=== PATIENT | female | born 1960 | race Caucasian/White ===

== ENCOUNTER → 2016-09-11 | Outpatient (CLI) | payer BC ==
--- NOTE | 2016-09-11 16:51 | XR ---
Abdomen HISTORY: Hematuria Frontal view of the abdomen on 2 images correlated to previous exam dated June Multiple renal calcifications are present over bilateral kidneys as on prior exam. Surgical clips are present in the right upper quadrant. Multiple calcifications in the pelvis are likely vascular. Surg ical clips are noted. IMPRESSION: Bilateral nephrolithiasis, postop changes.
== END | disposition home or self-care (01) ==
LOC: RADXRMAIN 15:37
PROVIDERS: ATTEND Urology
DX: N20.0 Calculus of kidney (principal); Z98.890 Other specified postprocedural states
CPT/HCPCS: 74000

== ENCOUNTER → 2016-09-12 | Outpatient (CLI) | payer BC ==
--- NOTE | 2016-09-12 15:42 | XR ---
EXAMINATION TYPE: XR IVP DATE OF EXAM: 09/12/2016 12:45 PM COMPARISON: NONE HISTORY: TECHNIQUE: Following intravenous administration of 100 cc Omnipaque 300, multiple spot images are obt ained. The preliminary film of the abdomen reveals innumerable renal calyceal calculi bilaterally with large r round calculi redemonstrated in the left kidney and more smaller irregular calculi redemonstrated i n the right kidney. Surgical clips in the gallbladder fossa. There are numerous densities in the pelvis corresponding to multiple phleboliths. Surgical clips uppe r pelvis extending left of midline are redemonstrated. Following intravenous administration of contra st material, sequential films of the abdomen were obtained. There is prompt and symmetrical excretion of the contrast by both kidneys which demonstrate normal size and configuration. The collecting systems and visualized portions of the ureters reveal mild bilateral pelvic fullness w ithout suspicious calyceal dilatation currently. There is no mass or obstructing calculus visualized currently. There is gradual accumulation of contrast material in the urinary bladder showing no gross abnormality. The post-voiding film shows minimal residual contrast in the collecting systems and uri nary bladder. 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 Findings are bev picious for 2 mm distal bilateral ureteral calculi near the UVJ.
== END | disposition home or self-care (01) ==
LOC: RADFLMAIN 11:20
PROVIDERS: ATTEND Urology
DX: N13.2 Hydronephrosis with renal and ureteral calculous obstruction (principal); N13.4 Hydroureter
CPT/HCPCS: 74400; Q9967

== ENCOUNTER → 2016-09-29 | Outpatient (CLI) | payer BC ==
--- NOTE | 2016-09-29 13:28 | XR ---
EXAMINATION TYPE: XR KUB DATE OF EXAM: 09/29/2016 12:57 PM COMPARISON: 09/12/2016 HISTORY: Hematuria, follow-up renal stones TECHNIQUE: One view abdominal series FINDINGS: The osseous structures are intact. The bowel gas pattern is nonspecific. Right kidney: There are at least 30 calcifications overlying the right kidney majority which appear t o be likely concentrated within the medulla. Left kidney: There again are numerous calcifications throughout the left kidney delay at least a numb er of 30. The 2 largest measure approximately 14 mm. Surgical clips in the pelvis are noted. Calcifications in the pelvis are likely vascular. IMPRESSION: 1. Stable numerous bilateral renal calcifications. The largest are noted on the left. Medullary spong e kidney in the differential diagnosis.
== END | disposition home or self-care (01) ==
LOC: RADXRMAIN 12:42
PROVIDERS: ATTEND Urology
DX: N28.89 Other specified disorders of kidney and ureter (principal)
CPT/HCPCS: 74000

== ENCOUNTER → 2016-11-03 | Outpatient (CLI) | payer BC ==
--- NOTE | 2016-11-03 15:54 | XR ---
EXAMINATION TYPE: XR KUB DATE OF EXAM: 11/03/2016 12:45 PM CLINICAL HISTORY: Kidney stones status post lithotripsy TECHNIQUE: 2 supine KUB images of the abdomen are obtained COMPARISON: Most recent abdominal x-ray September 29, 2016.. FINDINGS: There is redemonstration of multiple smaller right-sided renal calculi with approximately 3 0-40 stones present. There are approximately 20-30 calculi scattered throughout the left kidney with largest 2 calculi upper to mid pole level and single largest calculus lower pole level all stable in size and appearance. Rounded densities in bilateral pelvis favor phleboliths and are stable. Surgical clips in the mid to lower abdomen are redemonstrated. Additional cholecystectomy clips are n oted. There is overall nonobstructive bowel gas pattern. Visualized osseous structures are intact. IMPRESSION: Extensive bilateral nephrolithiasis with larger left-sided calculi redemonstrated stable in size and appearance.
== END | disposition home or self-care (01) ==
LOC: RADXRMAIN 12:33
PROVIDERS: ATTEND Urology
DX: N20.0 Calculus of kidney (principal)
CPT/HCPCS: 74000

== ENCOUNTER → 2016-11-06 | Outpatient (CLI) | payer BC ==
[2016-11-06 16:00] LABS: Basophils # (A) 0.1 k/uL (0-0.2); Basophils % (A) 1 %; CH 29.2; CHCM 32.6; Eosinophils # (A) 0.3 k/uL (0-0.7); Eosinophils % (A) 4 %; HCT 49.5 % (34.0-46.0); HDW 2.32; HGB 15.8 gm/dL (11.4-16.0); Luc # (Auto) 0.24; Luc % (Auto) 3; Lymphocytes # (A) 2.2 k/uL (1.0-4.8); Lymphocytes % (A) 31 %; MCH 28.7 pg (25.0-35.0); MCHC 31.9 g/dL (31.0-37.0); Mean Platelet Volume 6.9; Monocytes # (A) 0.6 k/uL (0-1.0); Monocytes % (A) 8 %; Neutrophils # (A) 3.6 k/uL (1.3-7.7); Neutrophils % (A) 52 %; RBC 5.51 m/uL (3.80-5.40); RDW 13.5 % (11.5-15.5); WBC 6.9 k/uL (3.8-10.6); WBC (Perox) 6.97
[2016-11-06 16:03] LABS: Appearance,Urine Cloudy (Clear); Bacteria,Urine Rare /hpf; Bilirubin,Urine Negative (Negative); Glucose,Urine (UA) Negative (Negative); Ketones,Urine Negative (Negative); Leukocyte Esterase,Urine Large (Negative); Mucus,Urine Rare /hpf; Nitrite,Urine Negative (Negative); PH, Urine 6.5 (5.0-8.0); Particle Count 4325; Protein,Urine Negative (Negative); RBC,Urine 5 /hpf (0-5); Specific Gravity,Urine 1.011 (1.001-1.035); Squamous Epithelial Cell,Urine 7 /hpf (0-4); UA Billing (MACRO vs. MICRO) MICRO; Urobilinogen,Urine <2.0 mg/dL (<2.0); WBC,Urine 41 /hpf (0-5)
[2016-11-06 16:18] LABS: Anion Gap 13 mmol/L; Blood Urea Nitrogen 17 mg/dL (7-17); Calcium 10.1 mg/dL (8.4-10.2); Carbon Dioxide 25 mmol/L (22-30); Chloride 105 mmol/L (98-107); Glucose 101 mg/dL (74-99); Non-African American GFR(MDRD) >60 (>60 ml/min/1.73 sqM); Potassium 4.6 mmol/L (3.5-5.1); Sodium 143 mmol/L (137-145)
== END ==
LOC: LABPAT 15:36
PROVIDERS: ATTEND Urology
DX: Z01.812 Encounter for preprocedural laboratory examination (principal); E03.9 Hypothyroidism, unspecified; R35.0 Frequency of micturition; N20.0 Calculus of kidney
CPT/HCPCS: 36415; 80048; 81001; 85025; 86850; 86900; 86901

== ENCOUNTER 2016-11-11 09:56 | Observation (INO) | payer BC ==
[2016-11-06 09:54] VITALS: BMI 30.1
[~2016-11-11 09:56] MED LIST: AMPICILLIN 1,000 MG in SODIUM CHLORIDE 0.9% 50 ML IVPB ONE; DEXAMETHASONE SOD PHOSPHATE 10 MG/ML 1 ML VIAL IV ONE; GENTAMICIN 120 MG in SODIUM CHLORIDE 0.9% 100 ML IVPB ONE; LACTATED RINGERS 1,000 ML IV SCH; MIDAZOLAM 2 MG/2 ML VIAL IV PRN; ONDANSETRON 4 MG/2 ML VIAL IVP ONE
--- NOTE | 2016-11-11 10:16 | XR ---
EXAMINATION TYPE: XR KUB DATE OF EXAM ORDERED: 11/11/2016 10:08 AM HISTORY: Kidney stone,DOS 11-11-16,[facility].. COMPARISON: Previous study dated 11/03/2016. FINDINGS: There has been right upper quadrant as well as pelvic surgery. There are numerous phleboliths within the pelvis. There are innumerable small calcifications throughout the right kidney. One of the largest measures 7 .9 mm. There are multiple calcifications scattered throughout the left kidney. The largest is in the upper pole and measures 11.9 mm. The overall appearance has not changed appreciably from the previous study. IMPRESSION: EXTENSIVE, BILATERAL NEPHROLITHIASIS.
[2016-11-11] MEDS ORDERED: LIDOCAINE 1% 20 ML VIAL (10MG/ML) FOR IV START INTRADERMA ONE (10:23)
[2016-11-11] MEDS ORDERED: SUCCINYLCHOLINE CHLORIDE 100 MG/5 ML SYR IV ONE (10:37)
[2016-11-11] MEDS ORDERED: PROPOFOL 10 MG/ML 20 ML VIAL IV ONE (10:37)
[2016-11-11] MEDS ORDERED: ROCURONIUM BROMIDE 10 MG/ML 10 ML VIAL IV ONE (10:37)
[2016-11-11] MEDS ORDERED: MIDAZOLAM 2 MG/2 ML VIAL ONE (10:37)
[2016-11-11] MEDS ORDERED: LIDOCAINE 1% INJ 10MG/ML (20 ML MDV) ONE (10:37)
[2016-11-11] MEDS ORDERED: NEOSTIGMINE 1 MG/ML 10 ML VIAL ONE (10:37)
[2016-11-11] MEDS ORDERED: ePHEDrine 50 MG/ML 1 ML AMP ONE (10:37)
[2016-11-11] MEDS ORDERED: fentaNYL (PF) 50 MCG/ML 2 ML AMP ONE (10:37)
[2016-11-11] MEDS ORDERED: PHENYLEPHRINE-0.9% NACL SYG 1 MG/10 ML SYRINGE ONE (10:37)
[2016-11-11] MEDS ORDERED: GLYCOPYRROLATE 0.2 MG/ML 2 ML VIAL ONE (10:37)
[2016-11-11] MEDS ORDERED: IOHEXOL 350 MG/ML 100 ML BOTTLE MISCELLANE ONE (11:40)
[2016-11-11] MEDS ORDERED: SODIUM CHLORIDE 0.9% 1,000 ML BAG IRRIGATION ONE (11:40)
[2016-11-11] MEDS ORDERED: MAG HYDROX/AL HYDROX/SIMETH 30 ML CUP PO PRN (12:50)
[2016-11-11] MEDS ORDERED: NALOXONE 0.4 MG/ML 1 ML VIAL IV PRN (12:52)
[2016-11-11] MEDS ORDERED: HYDROmorphone PCA 5 MG/25 ML SYRINGE IV PRN ×2 (12:52→15:50)
[2016-11-11] MEDS ORDERED: ONDANSETRON 4 MG/2 ML VIAL IVP PRN (12:52)
[2016-11-11] MEDS ORDERED: diphenhydrAMINE 50 MG/ML 1 ML VIAL IVP PRN (12:52)
--- NOTE | 2016-11-11 12:58 | P.OP ---
Date of Procedure: 11/11/16 Preoperative Diagnosis: Renal calculi large Postoperative Diagnosis: Same, tubular stones Procedure(s) Performed: Cystoscopy, placement of occluding balloon catheter left, 5-Algerian, percutaneous nephrostomy (Dr. Hollins) percutaneous nephrostolithotomy with laser , placement of 8-Algerian J nephrostomy Anesthesia: ELISA Surgeon: Ramin Muñoz Estimated Blood Loss (ml): 50 Pathology: other (Stone) Condition: stable Disposition: PACU Indications for Procedure: The patient is a 55-year-old female with chronic active urolithiasis multiple left renal stones, large, recurrent urine or tract infection with sepsis with obstructing stones she comes for stone removal Description of Procedure: The patient is brought to the operating suite and given a successful general endotracheal anesthesia on the transport gurney. She's placed in a frog position with a sterile prep and drape. Cystoscopy of the Foroblique lens and 22-Algerian sheath is performed to intubate the left ureteral orifice and place a 5-Algerian occluding balloon catheter in the proximal ureter. It is secured to a Langston catheter. The patient is placed in a prone position with care to airways and extremities. Dr. Hollins of radiology performed percutaneous access to the left lower pole calyx. I then dilate the tract to 30-Algerian and introduced a working sheath into the collecting system. I'm able to access the anterior lower pole calyx and remove the large stone seen there. It is noted that she has a lot of stones behind the papilla. With the grasping forceps I'm able to open the urothelium of the papilla and remove some of these tubular stones. I then pass the flexible nephroscope into the collecting system primarily the upper pole and identify the 2 larger stones. With the 365 laser probe I fracture the stones into tiny pieces and basket these pieces with a 1.9-Algerian basket. I then looked throughout the collecting system basketing or grasping any remaining fragments or stones. At the end of the procedure the only thing that I can see on fluoroscopy or tubular stones which are tiny. I do not see any remaining stones endoscopically and the collecting system. An 8-Algerian J nephrostomy tube was placed over the working wire and coils in the renal pelvis confirmed fluoroscopically. It is secured the skin with 2-0 silk. The wound is dressed the patient's awakened the ureteral catheters removed she's returned recovery room good condition. Blood loss is 50 mL.
[2016-11-11] MEDS: HYDROmorphone 1 MG/ML 1 ML SYRINGE IVP PRN ×2 (13:16→13:21)
--- NOTE | 2016-11-11 13:54 | FL ---
EXAMINATION TYPE: FL Perc Nephrostomy New Access DATE OF EXAM: 11/11/2016 12:57 PM COMPARISON: NONE HISTORY: Hydronephrosis, nephrolithiasis. PROCEDURE: Maximal barrier technique was utilized. The skin overlying the left kidney was localized using fluor oscopy and the overlying skin prepped and draped. Lidocaine used for local anesthesia. Skin fabby wa s made with a scalpel. Access was gained under fluoroscopy, following placement of a ureteral occlus ion balloon by the referring clinician and instillation of air in the renal collecting system with a 21-gauge needle to the kidney. A suitable posterior calyx was chosen. A 0.018 inch wire was advanc ed. The access site was dilated and subsequently a sheath was advanced into the renal pelvis followi ng dilation with balloon along the tract. The patient underwent nephrolithotomy by the referring clin ician. The patient remained in stable condition without complication. The patient was discharged t o observation. IMPRESSION: STATUS POST NEPHROSTOMY PLACEMENT FOR NEPHROLITHOTOMY WITH FLUOROSCOPIC GUIDANCE. THIS PROCEDURE PER FORMED BY THE UNDERSIGNED.
[2016-11-11] MEDS ORDERED: LEVOFLOXACIN 500 MG TAB PO SCH (14:00)
[2016-11-11] MEDS: DEXTROSE 5%-0.45% NACL 1,000 ML IV SCH (14:15)
[2016-11-11] MEDS: ACETAMINOPHEN TAB 325 MG TAB PO PRN (14:52)
[2016-11-11] MEDS: KETOROLAC 30 MG/ML 1 ML VIAL IVP SCH (18:18)
[2016-11-11] MEDS ORDERED: ZOLPIDEM 5 MG TAB PO SCH (21:15)
[2016-11-12] MEDS: KETOROLAC 30 MG/ML 1 ML VIAL IVP SCH ×2 (00:21→06:25)
[2016-11-12] MEDS: DEXTROSE 5%-0.45% NACL 1,000 ML IV SCH (00:21)
[2016-11-12] MEDS: ACETAMINOPHEN TAB 325 MG TAB PO PRN (00:22)
[2016-11-12] MEDS ORDERED: LEVOTHYROXINE 88 MCG TAB PO SCH (06:30)
[2016-11-12 08:43] VITALS: PULSE 57; RESP 16; TEMP 98
[2016-11-12] MEDS ORDERED: HYDROcodone/APAP 5-325MG 1 EACH TAB PO PRN (09:12)
--- NOTE | 2016-11-12 09:12 | P.DS ---
Providers Date of admission: 11/12/16 05:12 Attending physician: Ramin Muñoz Primary care physician: Stated None Hospital Course: The patient is a 55-year-old female with active urolithiasis. She had several large stones in her left kidney. She came for percutaneous nephrostolithotomy . She had an uneventful postoperative course. This morning both her voided and nephrostomy tube urinary clear. Her abdomen is soft. She is tolerating diet. Her pain is under control. She'll be discharged home with her nephrostomy tube. She will return to the office on Thursday for nephrostomy tube removal. We'll continue to work on kidney stone formation and recurrent bladder infections. Her condition upon discharge is good or medication as [place] plus her home medications Patient Condition at Discharge: Good Plan - Discharge Summary New Discharge Prescriptions: HYDROcodone/APAP 5-325MG [[place] 5-325] 1 tab PO Q4HR PRN #20 tab PRN Reason: Pain Discharge Medication List Levothyroxine Sodium [Synthroid] 88 mcg PO QAM 03/27/16 [History] Eszopiclone [Lunesta] 3 mg PO HS 04/15/16 [History] Acetaminophen [Tylenol 8 Hour] 650 mg PO DAILY PRN 11/06/16 [History] Ibuprofen [Motrin] 200 mg PO Q6HR PRN 11/06/16 [History] Levofloxacin [Levaquin] 500 mg PO DAILY 11/06/16 [History] HYDROcodone/APAP 5-325MG [[place] 5-325] 1 tab PO Q4HR PRN #20 tab 11/12/16 [Rx] Follow up Appointment(s)/Referral(s): Ramin Muñoz MD [STAFF PHYSICIAN] - 11/14/16 Activity/Diet/Wound Care/Special Instructions: home with nephrostomy tube
[2016-11-12 10:24] VITALS: BP 97/59
== END 2016-11-12 10:28 | disposition home or self-care (01) ==
LOC: OR 09:56 → 6PED 12:39 → OR 11-12 05:11 → 6PED 11-12 05:12
PROVIDERS: ADMIT Urology; ATTEND Urology
DX: N20.0 Calculus of kidney (principal); E03.9 Hypothyroidism, unspecified; G47.00 Insomnia, unspecified; Z79.899 Other long term (current) drug therapy
CPT/HCPCS: 50432; 74000; 82365; 86850; 86900; 86901; 96374

== ENCOUNTER 2016-11-12 20:58 | Inpatient (IN) | payer BC ==
[2016-11-12] MEDS ORDERED: cefTRIAXone 2,000 MG in SODIUM CHLORIDE 0.9% 100 ML IVPB STA (22:53)
--- NOTE | 2016-11-12 22:53 | ED ---
General Adult HPI - General Chief complaint: Abdominal Pain Stated complaint: Abd pain Time Seen by Provider: 11/12/16 22:09 Source: patient, family, RN notes reviewed, old records reviewed Mode of arrival: ambulatory Limitations: no limitations - History of Present Illness Initial comments: Chief complaint and history of present illness is a 55-year-old female who is here because of a fever and lower abdominal pain. Yesterday the patient had a left percutaneous nephrolithotomy to rinse out the kidney. She has a history of multiple kidney stones or urinary tract infections. Review of thepatient's urine appeared clear this morning without symptoms or problems. After being discharged on Levaquin and [place] the patient developed a fever and lower abdominal pain. She was told to come back to the emergency room. Complains of nausea but no vomiting. - Related Data Home Medications Medication Instructions Recorded Confirmed Levothyroxine Sodium [Synthroid] 88 mcg PO QAM 03/27/16 11/12/16 Eszopiclone [Lunesta] 3 mg PO HS 04/15/16 11/12/16 Acetaminophen [Tylenol 8 Hour] 650 mg PO DAILY PRN 11/06/16 11/12/16 Ibuprofen [Motrin] 200 mg PO Q6HR PRN 11/06/16 11/12/16 Levofloxacin [Levaquin] 500 mg PO DAILY 11/06/16 11/12/16 Previous Rx's Medication Instructions Recorded HYDROcodone/APAP 5-325MG [[place] 1 tab PO Q4HR PRN #20 tab 11/12/16 5-325] Allergies Allergy/AdvReac Type Severity Reaction Status Date / Time ciprofloxacin [From Cipro] AdvReac Nausea & Verified 11/12/16 22:12 Vomiting ciprofloxacin HCl AdvReac Nausea & Verified 11/12/16 22:12 [From Cipro] Vomiting Review of Systems ROS Statement: Those systems with pertinent positive or pertinent negative responses have been documented in the HPI. Review of systems. No visual acuity or headache no chest pain or shortness of breath. She has discomfort to her left flank where she had the nephrolithotomy performed yesterday. Also lower abdominal pain. She developed a fever with nausea but no vomiting this afternoon. All systems are reviewed. Past medical problems significant for asthma, hyperlipidemia multiple kidney stones. Surgeries include cholecystectomy, thyroidectomy for benign entity. Is also partial hysterectomy. Patient's family history significant for kidney stones. She has ALLERGIES to Cipro but she can take Levaquin. Nonsmoker nondrinker. ROS Other: All systems not noted in ROS Statement are negative. Past Medical History Past Medical History: Asthma, Hyperlipidemia Additional Past Medical History / Comment(s): kidney stones History of Any Multi-Drug Resistant Organisms: ESBL Date of last positivie culture/infection: 07/06/16 MDRO Source:: urine kl. pneumo Past Surgical History: Cholecystectomy Additional Past Surgical History / Comment(s): thyroidectomy Past Psychological History: No Psychological Hx Reported Smoking Status: Never smoker Past Alcohol Use History: None Reported Past Drug Use History: None Reported - Past Family History Mother Family Medical History: No Reported History Father Family Medical History: No Reported History General Exam - General Exam Comments Initial Comments: General: The patient is awake and alert, with pain and fever post left percutaneous nephrolithotomy. The patient's draining tube is reddish in color. Vital signs show temperature 102.3 pulse 120 respiratory rate 20 pulse ox 94% room air blood pressure 113/67. Eye: Pupils are equal, round and reactive to light, extra-ocular movements are intact ; there is normal conjunctiva bilaterally. No signs of icterus. Ears, nose, mouth and throat: There are moist mucous membranes . Neck: The neck is supple, there is no tenderness . Cardiovascular: Tachycardic heart rate, 120 with fever. No murmur, rub or gallop is appreciated. Respiratory: Lungs are clear to auscultation, respirations are non-labored, breath sounds are equal. No wheezes, stridor, rales, or rhonchi. Gastrointestinal: Lower abdominal pain. Nausea no vomiting. Back: Patient has no indwelling percutaneous left nephrolithotomy catheter placed yesterday. This was used to rinse or irrigate the kidney. Musculoskeletal: Normal ROM, no tenderness, There is no pedal edema. Limitations: no limitations Course Vital Signs 11/12/16 11/12/16 20:59 23:01 Temperature 102.3 F H 102.3 F H Pulse Rate 120 H 99 Respiratory 20 20 Rate Blood Pressure 113/67 141/65 O2 Sat by Pulse 94 L 94 L Oximetry Medical Decision Making - Medical Decision Making Medical decision making; patient's white count 6.3 hemoglobin 13 hematocrit 40.7 potassium is 4.4, BUN 12 creatinine 1.0 the GFR 57. Glucose 100. Urine shows large leuk esterase positive, 15 rbc's 102 WBCs. Renal ultrasound was done and reviewed by radiologist his final impression is multiple bilateral renal calculi. No evidence of hydronephrosis. Also small right renal cyst. As read by Dr. Knight Chest x-ray is done AP and lateral view. Awaiting radiologist's final impression. Case had been discussed with on-call urologist Dr. rico. He recommended Rocephin being started this evening. - Lab Data Result diagrams: 11/12/16 23:00 11/12/16 23:00 Lab Results 11/12/16 11/12/16 11/12/16 Range/Units 23:00 23:00 23:00 WBC 6.3 (3.8-10.6) k/uL RBC 4.67 (3.80-5.40) m/uL Hgb 13.3 (11.4-16.0) gm/dL Hct 40.7 (34.0-46.0) % MCV 87.1 (80.0-100.0) fL MCH 28.5 (25.0-35.0) pg MCHC 32.8 (31.0-37.0) g/dL RDW 13.5 (11.5-15.5) % Plt Count 198 (150-450) k/uL Neutrophils % 83 % Lymphocytes % 9 % Monocytes % 5 % Eosinophils % 2 % Basophils % 1 % Neutrophils # 5.2 (1.3-7.7) k/uL Lymphocytes # 0.6 L (1.0-4.8) k/uL Monocytes # 0.3 (0-1.0) k/uL Eosinophils # 0.1 (0-0.7) k/uL Basophils # 0.0 (0-0.2) k/uL Sodium 133 L (137-145) mmol/L Potassium 4.4 (3.5-5.1) mmol/L Chloride 104 (98-107) mmol/L Carbon Dioxide 23 (22-30) mmol/L Anion Gap 6 mmol/L BUN 12 (7-17) mg/dL Creatinine 1.00 (0.52-1.04) mg/dL Est GFR (MDRD) Af Amer >60 (>60 ml/min/1.73 sqM) Est GFR (MDRD) Non-Af 57 (>60 ml/min/1.73 sqM) Glucose 100 H (74-99) mg/dL Plasma Lactic Acid Shaw 0.8 (0.7-2.0) mmol/L Calcium 8.6 (8.4-10.2) mg/dL Total Bilirubin 0.5 (0.2-1.3) mg/dL AST 39 H (14-36) U/L ALT 41 (9-52) U/L Alkaline Phosphatase 86 (38-126) U/L Total Protein 5.8 L (6.3-8.2) g/dL Albumin 3.2 L (3.5-5.0) g/dL Urine Color Urine Appearance (Clear) Urine pH (5.0-8.0) Ur Specific [place] (1.001-1.035) Urine Protein (Negative) Urine Glucose (UA) (Negative) Urine Ketones (Negative) Urine Blood (Negative) Urine Nitrite (Negative) Urine Bilirubin (Negative) Urine Urobilinogen (<2.0) mg/dL Ur Leukocyte Esterase (Negative) Urine RBC (0-5) /hpf Urine WBC (0-5) /hpf Ur Squamous Epith Cells (0-4) /hpf Urine Bacteria (None) /hpf Urine Mucus (None) /hpf 11/12/16 Range/Units 23:00 WBC (3.8-10.6) k/uL RBC (3.80-5.40) m/uL Hgb (11.4-16.0) gm/dL Hct (34.0-46.0) % MCV (80.0-100.0) fL MCH (25.0-35.0) pg MCHC (31.0-37.0) g/dL RDW (11.5-15.5) % Plt Count (150-450) k/uL Neutrophils % % Lymphocytes % % Monocytes % % Eosinophils % % Basophils % % Neutrophils # (1.3-7.7) k/uL Lymphocytes # (1.0-4.8) k/uL Monocytes # (0-1.0) k/uL Eosinophils # (0-0.7) k/uL Basophils # (0-0.2) k/uL Sodium (137-145) mmol/L Potassium (3.5-5.1) mmol/L Chloride (98-107) mmol/L Carbon Dioxide (22-30) mmol/L Anion Gap mmol/L BUN (7-17) mg/dL Creatinine (0.52-1.04) mg/dL Est GFR (MDRD) Af Amer (>60 ml/min/1.73 sqM) Est GFR (MDRD) Non-Af (>60 ml/min/1.73 sqM) Glucose (74-99) mg/dL Plasma Lactic Acid Shaw (0.7-2.0) mmol/L Calcium (8.4-10.2) mg/dL Total Bilirubin (0.2-1.3) mg/dL AST (14-36) U/L ALT (9-52) U/L Alkaline Phosphatase (38-126) U/L Total Protein (6.3-8.2) g/dL Albumin (3.5-5.0) g/dL Urine Color Yellow Urine Appearance Cloudy H (Clear) Urine pH 5.5 (5.0-8.0) Ur Specific [place] 1.012 (1.001-1.035) Urine Protein Negative (Negative) Urine Glucose (UA) Negative (Negative) Urine Ketones Negative (Negative) Urine Blood Moderate H (Negative) Urine Nitrite Negative (Negative) Urine Bilirubin Negative (Negative) Urine Urobilinogen <2.0 (<2.0) mg/dL Ur Leukocyte Esterase Large H (Negative) Urine RBC 50 H (0-5) /hpf Urine WBC 102 H (0-5) /hpf Ur Squamous Epith Cells 4 (0-4) /hpf Urine Bacteria Rare H (None) /hpf Urine Mucus Rare H (None) /hpf Disposition Clinical Impression: Urinary tract infection Disposition: ADMITTED IP TO THIS HOSP Condition: Fair Time of Disposition: 01:05
[2016-11-12] MEDS ORDERED: HYDROmorphone 1 MG/ML 1 ML SYRINGE IVP STA (22:54)
[2016-11-12] MEDS ORDERED: SODIUM CHLORIDE 0.9% 1,000 ML IV ONE (22:55)
[2016-11-12] MEDS ORDERED: METOCLOPRAMIDE 5 MG/ML 2 ML VIAL IVP STA (22:55)
[2016-11-12] MEDS ORDERED: ACETAMINOPHEN TAB 500 MG TAB PO STA (23:03)
[2016-11-12 23:12] LABS: Basophils % (A) 1 %; CH 28.9; CHCM 33.4; Eosinophils # (A) 0.1 k/uL (0-0.7); Eosinophils % (A) 2 %; HCT 40.7 % (34.0-46.0); HDW 2.31; HGB 13.3 gm/dL (11.4-16.0); Luc # (Auto) 0.08; Luc % (Auto) 1; Lymphocytes # (A) 0.6 k/uL (1.0-4.8); Lymphocytes % (A) 9 %; MCH 28.5 pg (25.0-35.0); MCHC 32.8 g/dL (31.0-37.0); MCV 87.1 fL (80.0-100.0); Mean Platelet Volume 6.9; Monocytes # (A) 0.3 k/uL (0-1.0); Monocytes % (A) 5 %; Neutrophils # (A) 5.2 k/uL (1.3-7.7); Neutrophils % (A) 83 %; RBC 4.67 m/uL (3.80-5.40); RDW 13.5 % (11.5-15.5); WBC 6.3 k/uL (3.8-10.6); WBC (Perox) 6.78
[2016-11-12 23:20] LABS: Appearance,Urine Cloudy (Clear); Bacteria,Urine Rare /hpf; Bilirubin,Urine Negative (Negative); Glucose,Urine (UA) Negative (Negative); Ketones,Urine Negative (Negative); Leukocyte Esterase,Urine Large (Negative); Mucus,Urine Rare /hpf; Nitrite,Urine Negative (Negative); PH, Urine 5.5 (5.0-8.0); Particle Count 2885; Protein,Urine Negative (Negative); RBC,Urine 50 /hpf (0-5); Specific Gravity,Urine 1.012 (1.001-1.035); Squamous Epithelial Cell,Urine 4 /hpf (0-4); UA Billing (MACRO vs. MICRO) MICRO; Urobilinogen,Urine <2.0 mg/dL (<2.0); WBC,Urine 102 /hpf (0-5)
[2016-11-12 23:23] LABS: ALT 41 U/L (9-52); AST 39 U/L (14-36); Alkaline Phosphatase 86 U/L (38-126); Anion Gap 6 mmol/L; Blood Urea Nitrogen 12 mg/dL (7-17); Calcium 8.6 mg/dL (8.4-10.2); Carbon Dioxide 23 mmol/L (22-30); Chloride 104 mmol/L (98-107); Glucose 100 mg/dL (74-99); Non-African American GFR(MDRD) 57 (>60 ml/min/1.73 sqM); Potassium 4.4 mmol/L (3.5-5.1); Sodium 133 mmol/L (137-145); Total Bilirubin 0.5 mg/dL (0.2-1.3); Total Protein 5.8 g/dL (6.3-8.2)
--- NOTE | 2016-11-13 00:37 | US ---
EXAM: US Retroperitoneal Limited, Renal. CLINICAL HISTORY: Reason: Recent left percutaneous left nephro lithotomy TECHNIQUE: Real-time ultrasound of the retroperitoneum (limited) with image documentation. COMPARISON: Renal ultrasound 07/06/16 FINDINGS: Kidneys:: Kidneys are of normal size and echotexture bilaterally. Multiple shadowing echodensities in both kidneys suggesting bilateral renal calculi. Largest calculus mid zone right kidney measures 1.4 cm largest calculus upper pole left kidney measures 2.1 cm. Small approximate 1.17 m cyst along the upper pole to mid zone of right kidney. No evidence of hydronephrosis. Interval resolution of right hydronephrosis since 03/27/2016. No perinephric fluid collections identified. Bladder: Urinary bladder is unremarkable although incompletely distended limiting bladder evaluation. IMPRESSION: Multiple bilateral renal calculi. No evidence of hydronephrosis. Small right renal cyst..
--- NOTE | 2016-11-13 01:03 | XR ---
EXAM: XR Chest, 2 Views. CLINICAL HISTORY: Reason: Recent left percutaneous nephrolithotomy TECHNIQUE: Frontal and lateral views of the chest. COMPARISON: No relevant prior studies available. FINDINGS: Lungs: Increased opacity left lung base suggesting left lower lobe infiltrate or partial atelectasis. Lungs are otherwise clear. Pleural space: No evidence of pleural effusion. No pneumothorax. Heart: Heart size and mediastinal structures are within normal limits. Mediastinum: Unremarkable. Bones/joints: Unremarkable. IMPRESSION: Left lower lobe infiltrate or partial atelectasis. Possibility of pneumonia must be considered and clinical correlation is recommended.
[2016-11-13] MEDS ORDERED: METOCLOPRAMIDE 5 MG/ML 2 ML VIAL IVP PRN (01:06)
[2016-11-13] MEDS ORDERED: NALOXONE 0.4 MG/ML 1 ML VIAL IV PRN (01:06)
[2016-11-13] MEDS ORDERED: ACETAMINOPHEN TAB 325 MG TAB PO PRN (01:09)
[2016-11-13 01:40] VITALS: BMI 30.9
[2016-11-13] MEDS: HYDROmorphone 1 MG/ML 1 ML SYRINGE IV PRN ×3 (02:47→11:48)
[2016-11-13] MEDS: SODIUM CHLORIDE 0.9% 1,000 ML IV SCH ×2 (02:49→21:54)
[2016-11-13] MEDS: LEVOTHYROXINE 88 MCG TAB PO SCH (08:14)
[2016-11-13] MEDS: IBUPROFEN 200 MG TAB PO PRN ×2 (08:50→20:02)
[2016-11-13] MEDS: PANTOPRAZOLE 40 MG/10 ML VIAL IV SCH (08:51)
--- NOTE | 2016-11-13 11:27 | P.GSHP ---
History of Present Illness H&P Date: 11/13/16 The patient is a 65-year-old female who underwent a left percutaneous nephrostolithotomy on 11/11/2016. She was discharged home yesterday. He called me last night stating she felt cold. She took her temperature and had a 102.5 fever. She came into the emergency room. Her urine was inflamed and she either had atelectasis or infiltrate in the left lung. She is admitted for IV hydration, IV antibiotics. She had been on oral Levaquin preoperatively and postoperatively which is culture specific. Her nephrostomy tube has been draining. He is feeling a little better this morning. Her white blood cell count was normal. Her temperature this morning is 100. - Review of Systems Comment: Noncontributory Past Medical History Past Medical History: Asthma, Hyperlipidemia Additional Past Medical History / Comment(s): kidney stones History of Any Multi-Drug Resistant Organisms: ESBL Date of last positivie culture/infection: 07/06/16 MDRO Source:: urine kl. pneumo Past Surgical History: Cholecystectomy Additional Past Surgical History / Comment(s): thyroidectomy Past Psychological History: No Psychological Hx Reported Smoking Status: Never smoker Past Alcohol Use History: None Reported Past Drug Use History: None Reported - Past Family History Mother Family Medical History: No Reported History Father Family Medical History: No Reported History Medications and Allergies Home Medications Medication Instructions Recorded Confirmed Type Levothyroxine Sodium [Synthroid] 88 mcg PO QAM 03/27/16 11/12/16 History Eszopiclone [Lunesta] 3 mg PO HS 04/15/16 11/12/16 History Acetaminophen [Tylenol 8 Hour] 650 mg PO DAILY PRN 11/06/16 11/12/16 History Ibuprofen [Motrin] 200 mg PO Q6HR PRN 11/06/16 11/12/16 History Levofloxacin [Levaquin] 500 mg PO DAILY 11/06/16 11/12/16 History Allergies Allergy/AdvReac Type Severity Reaction Status Date / Time ciprofloxacin [From Cipro] AdvReac Nausea & Verified 11/12/16 22:12 Vomiting ciprofloxacin HCl AdvReac Nausea & Verified 11/12/16 22:12 [From Cipro] Vomiting Surgical - Exam Vital Signs Temp Pulse Resp BP Pulse Ox 102.3 F H 120 H 20 113/67 94 L 11/12/16 20:59 11/12/16 20:59 11/12/16 20:59 11/12/16 20:59 11/12/16 20:59 - General well developed, well nourished, no distress - Eyes PERRL - ENT no hearing loss - Neck trachea midline - Respiratory normal expansion, normal respiratory effort - Cardiovascular Rhythm: regular - Abdomen She has mild tenderness in the left upper abdomen consistent with her recent surgery. Abdomen: tender - Neurologic normal coordination, normal sensation - Psychiatric oriented to time, oriented to person, oriented to place, speech is normal, memory intact Results - Labs 11/12/16 23:00 11/12/16 23:00 Assessment and Plan Plan: Impression: Postoperative fever doubly due to atelectasis or left lower lobe infiltrate. Possible urinary infection Recommendations. She was started on ceftriaxone. She'll have an incentive spirometry. He'll continue with IV fluids and we'll reassess in 24 hours.
[2016-11-14] MEDS: SODIUM CHLORIDE 0.9% 1,000 ML IV SCH ×2 (03:33→07:50)
[2016-11-14] MEDS: LEVOTHYROXINE 88 MCG TAB PO SCH (07:50)
[2016-11-14 08:40] VITALS: BP 131/77; PULSE 84; RESP 16; TEMP 98.5
--- NOTE | 2016-11-14 08:46 | XR ---
EXAMINATION TYPE: XR chest 2V DATE OF EXAM: 11/14/2016 7:16 AM COMPARISON: Prior chest x-ray 12 November 2016 HISTORY: Rule out pneumonia, abnormal chest x-ray TECHNIQUE: Frontal and lateral views of the chest are obtained. FINDINGS: Patchy basilar density is present bilaterally. No evident pneumothorax. Cardiac mediastina l silhouette, pulmonary vascularity and mireya are within normal limits. IMPRESSION: Basilar atelectasis, the MB small effusion, correlate to exclude airspace disease and fo llow-up suggested.
[2016-11-14] MEDS: PANTOPRAZOLE 40 MG/10 ML VIAL IV SCH (09:36)
--- NOTE | 2016-11-14 11:51 | P.DS ---
Providers Date of admission: 11/13/16 01:09 Attending physician: Thiago Hernandez Primary care physician: Beth Godinez [place] Course: The patient is a 55-year-old female who underwent a percutaneous nephrostolithotomy 11/11/2016. She came to the hospital following morning with fever and chills. She had atelectasis or pneumonia. She is given a gram of Rocephin and placed on incentive from a tree and IV fluids. Her fever defervesced quickly. She stayed in the hospital till today. I removed her nephrostomy tube. Her urine culture is pending. She feels well she'll be discharged home later today and antibiotic appropriate for the urine culture. A chest x-ray was a sickly unchanged over she is breathing better feeling better pain is less and her temperature is gone. It is my belief that her postoperative fever is due to atelectasis. Her perioperative urine infection continues to be treated. She'll follow-up in the office in one week. Patient Condition at Discharge: Fair Plan - Discharge Summary New Discharge Prescriptions: Amoxicillin/Potassium Clav [Augmentin 875-125 Tablet] 1 tab PO Q12HR #14 tab Metoclopramide HCl [Reglan] 10 mg PO Q6HR PRN #10 tablet PRN Reason: Nausea Discharge Medication List Levothyroxine Sodium [Synthroid] 88 mcg PO QAM 03/27/16 [History] Eszopiclone [Lunesta] 3 mg PO HS 04/15/16 [History] Acetaminophen [Tylenol 8 Hour] 650 mg PO DAILY PRN 11/06/16 [History] Ibuprofen [Motrin] 200 mg PO Q6HR PRN 11/06/16 [History] Levofloxacin [Levaquin] 500 mg PO DAILY 11/06/16 [History] HYDROcodone/APAP 5-325MG [[place] 5-325] 1 tab PO Q4HR PRN #20 tab 11/12/16 [Rx] Amoxicillin/Potassium Clav [Augmentin 875-125 Tablet] 1 tab PO Q12HR #14 tab [Rx] Metoclopramide HCl [Reglan] 10 mg PO Q6HR PRN #10 tablet 11/14/16 [Rx] Follow up Appointment(s)/Referral(s): Beth Godinez MD [Primary Care Provider] - 1-2 days Ramin Muñoz MD [STAFF PHYSICIAN] - 1 Week
[2016-11-15] MEDS ORDERED: LEVOTHYROXINE 88 MCG TAB PO SCH (06:30)
[2016-11-15] MEDS ORDERED: PANTOPRAZOLE 40 MG TABLET PO SCH (09:00)
== END 2016-11-14 17:52 | disposition home or self-care (01) | DRG 206 ==
LOC: EC 20:58 → 3SUR 11-13 01:09
PROVIDERS: ADMIT Urology; ATTEND Urology
PROC: 0TP5X0Z Removal of Drainage Device from Kidney, External Approach (ICD-10-PCS; principal; 2016-11-14)
DX: J98.11 Atelectasis (principal); N28.1 Cyst of kidney, acquired; N39.0 Urinary tract infection, site not specified; J45.909 Unspecified asthma, uncomplicated; R50.82 Postprocedural fever; N20.0 Calculus of kidney; E78.5 Hyperlipidemia, unspecified; R11.0 Nausea; R00.0 Tachycardia, unspecified; E89.0 Postprocedural hypothyroidism; Z98.890 Other specified postprocedural states; Z96.0 Presence of urogenital implants; Z87.442 Personal history of urinary calculi; Z88.1 Allergy status to other antibiotic agents; Z86.19 Personal history of other infectious and parasitic diseases; Z87.440 Personal history of urinary (tract) infections; Z90.49 Acquired absence of other specified parts of digestive tract; Z79.2 Long term (current) use of antibiotics; Z79.1 Long term (current) use of non-steroidal anti-inflammatories (NSAID); Z79.899 Other long term (current) drug therapy
CPT/HCPCS: 36415; 50432; 71020; 74000; 76770; 80053; 81001; 82365; 83605; 85025; 87086; 96361; 96365; 96374; 96375; 99285

== ENCOUNTER → 2017-05-28 | Outpatient (CLI) | payer BC ==
--- NOTE | 2017-05-28 14:53 | XR ---
Abdomen HISTORY: Kidney stones, N 20.0, left flank pain Frontal view of the abdomen submitted on 2 images correlated to prior exam 11/11/2016 Multiple calcifications are again noted within the pelvis. There is a triangular-shaped calcification in the left hemipelvis which was not seen definitively on prior exam measures approximately 8 to 9 m m in greatest dimension which could possibly represent a distal left ureteral calculus. Multiple surg ical clips again noted within the pelvis. Multiple calcifications are scattered over both kidneys. Ca lcifications are subcentimeter in size. The largest calcification seen on prior exam are no longer ev ident. Surgical clips present in the upper quadrant. Lung bases not included on exam. No bowel obstru ction or pneumoperitoneum evident. IMPRESSION: Findings suggest distal left ureteral calculus.
== END | disposition home or self-care (01) ==
LOC: RADXRMAIN 13:31
PROVIDERS: ATTEND Urology
DX: N20.0 Calculus of kidney (principal)
CPT/HCPCS: 74000

== ENCOUNTER 2018-03-14 13:22 | Emergency (ER) | payer BC ==
[2018-03-14 13:38] VITALS: RESP 18
[2018-03-14] MEDS ORDERED: METOCLOPRAMIDE 5 MG/ML 2 ML VIAL IVP STA (13:47)
[2018-03-14] MEDS ORDERED: SODIUM CHLORIDE 0.9% 1,000 ML IV STA (13:47)
[2018-03-14] MEDS ORDERED: KETOROLAC 30 MG/ML 1 ML VIAL IVP STA (13:47)
--- NOTE | 2018-03-14 13:52 | ED ---
General Adult HPI - General Chief complaint: Abdominal Pain Stated complaint: Left flank pain Time Seen by Provider: 03/14/18 13:43 Source: patient, RN notes reviewed Mode of arrival: ambulatory Limitations: no limitations - History of Present Illness Initial comments: Patient is a pleasant 57-year-old female presenting to the emergency Department with left flank pain. Onset was around 5 PM yesterday. Discomfort has been persistent. Patient states discomfort does radiate somewhat down the leg. Patient does have a history of sciatic pain with similar problems however does not usually last this long. Patient also has history of multiple previous kidney stones. Discomfort is mostly left lateral lumbar region. Discomfort is not positional. No weakness. No incontinence or retention of bowel or bladder. - Related Data Home Medications Medication Instructions Recorded Confirmed Levothyroxine Sodium [Synthroid] 88 mcg PO QAM 03/27/16 11/12/16 Eszopiclone [Lunesta] 3 mg PO HS 04/15/16 11/12/16 Acetaminophen [Tylenol 8 Hour] 650 mg PO DAILY PRN 11/06/16 11/12/16 Ibuprofen [Motrin] 200 mg PO Q6HR PRN 11/06/16 11/12/16 Levofloxacin [Levaquin] 500 mg PO DAILY 11/06/16 11/12/16 Previous Rx's Medication Instructions Recorded HYDROcodone/APAP 5-325MG [[place] 1 tab PO Q4HR PRN #20 tab 11/12/16 5-325] Amoxicillin/Potassium Clav 1 tab PO Q12HR #14 tab 11/14/16 [Augmentin 875-125 Tablet] Metoclopramide HCl [Reglan] 10 mg PO Q6HR PRN #10 tablet 11/14/16 Cyclobenzaprine [Flexeril] 10 mg PO TID PRN #12 tablet 03/14/18 Sulfamethox-Tmp 800-160Mg [Bactrim 1 each PO Q12HR #20 tab 03/14/18 DS 800-160 mg] Allergies Allergy/AdvReac Type Severity Reaction Status Date / Time ciprofloxacin [From Cipro] AdvReac Nausea & Verified 03/14/18 13:36 Vomiting ciprofloxacin HCl AdvReac Nausea & Verified 03/14/18 13:36 [From Cipro] Vomiting Review of Systems ROS Statement: Those systems with pertinent positive or pertinent negative responses have been documented in the HPI. ROS Other: All systems not noted in ROS Statement are negative. Constitutional: Denies: fever Eyes: Denies: eye pain ENT: Denies: ear pain Respiratory: Denies: cough Cardiovascular: Denies: chest pain Endocrine: Denies: fatigue Gastrointestinal: Reports: nausea. Denies: vomiting Genitourinary: Denies: hematuria Musculoskeletal: Reports: back pain Skin: Denies: rash Neurological: Denies: weakness Past Medical History Past Medical History: Asthma, Hyperlipidemia Additional Past Medical History / Comment(s): kidney stones History of Any Multi-Drug Resistant Organisms: ESBL Date of last positivie culture/infection: 07/06/16 MDRO Source:: urine kl. pneumo Past Surgical History: Cholecystectomy Additional Past Surgical History / Comment(s): thyroidectomy Past Psychological History: No Psychological Hx Reported Smoking Status: Never smoker Past Alcohol Use History: None Reported Past Drug Use History: None Reported - Past Family History Mother Family Medical History: No Reported History Father Family Medical History: No Reported History General Exam Limitations: no limitations General appearance: alert Head exam: Present: atraumatic Eye exam: Present: normal appearance, PERRL ENT exam: Present: normal oropharynx Neck exam: Present: normal inspection Respiratory exam: Present: normal lung sounds bilaterally Cardiovascular Exam: Present: regular rate, normal rhythm Expanded Peripheral pulses: 2+: Dorsalis Pedis (R), Dorsalis Pedis (L) GI/Abdominal exam: Present: soft, tenderness (Mild left flank tenderness). Absent: distended Extremities exam: Present: normal inspection. Absent: pedal edema, calf tenderness Back exam: Present: tenderness (Mild tenderness left lateral paravertebral region. Moderate tenderness below the left CVA.) Neurological exam: Present: alert. Absent: motor sensory deficit Expanded Sensory exam: Lower Extremity Light Touch: Normal Motor strength exam: RLE: 5, LLE: 5 Psychiatric exam: Present: normal affect, normal mood Skin exam: Present: normal color Course Vital Signs 03/14/18 13:36 Temperature 98.6 F Pulse Rate 67 Respiratory 18 Rate Blood Pressure 123/78 O2 Sat by Pulse 98 Oximetry Medical Decision Making - Medical Decision Making Patient reevaluated and resting comfortably in bed. Symptoms have improved however not resolved. Patient does not want any more medication at this time. Patient is updated on results and need for follow-up as well as need for follow- up ultrasound of the adnexal region. - Lab Data Result diagrams: 03/14/18 13:54 03/14/18 13:54 Lab Results 03/14/18 03/14/18 03/14/18 Range/Units 13:54 13:54 13:54 WBC 6.0 (3.8-10.6) k/uL RBC 5.10 (3.80-5.40) m/uL Hgb 14.1 (11.4-16.0) gm/dL Hct 44.4 (34.0-46.0) % MCV 87.1 (80.0-100.0) fL MCH 27.7 (25.0-35.0) pg MCHC 31.8 (31.0-37.0) g/dL RDW 13.4 (11.5-15.5) % Plt Count 325 (150-450) k/uL Neutrophils % 54 % Lymphocytes % 30 % Monocytes % 7 % Eosinophils % 6 % Basophils % 1 % Neutrophils # 3.2 (1.3-7.7) k/uL Lymphocytes # 1.8 (1.0-4.8) k/uL Monocytes # 0.4 (0-1.0) k/uL Eosinophils # 0.4 (0-0.7) k/uL Basophils # 0.1 (0-0.2) k/uL PT 10.0 (9.0-12.0) sec INR 1.0 (<1.2) APTT 23.0 (22.0-30.0) sec Sodium 141 (137-145) mmol/L Potassium 4.1 (3.5-5.1) mmol/L Chloride 109 H (98-107) mmol/L Carbon Dioxide 26 (22-30) mmol/L Anion Gap 6 mmol/L BUN 16 (7-17) mg/dL Creatinine 0.80 (0.52-1.04) mg/dL Est GFR (CKD-EPI)AfAm >90 (>60 ml/min/1.73 sqM) Est GFR (CKD-EPI)NonAf 82 (>60 ml/min/1.73 sqM) Glucose 65 L (74-99) mg/dL POC Glucose (mg/dL) (75-99) mg/dL POC Glu [employer] ID Calcium 9.6 (8.4-10.2) mg/dL Total Bilirubin 0.3 (0.2-1.3) mg/dL AST 23 (14-36) U/L ALT 37 (9-52) U/L Alkaline Phosphatase 87 (38-126) U/L Total Protein 6.3 (6.3-8.2) g/dL Albumin 3.9 (3.5-5.0) g/dL Amylase 55 (30-110) U/L Lipase 78 (23-300) U/L Urine Color Urine Appearance (Clear) Urine pH (5.0-8.0) Ur Specific [place] (1.001-1.035) Urine Protein (Negative) Urine Glucose (UA) (Negative) Urine Ketones (Negative) Urine Blood (Negative) Urine Nitrite (Negative) Urine Bilirubin (Negative) Urine Urobilinogen (<2.0) mg/dL Ur Leukocyte Esterase (Negative) Urine RBC (0-5) /hpf Urine WBC (0-5) /hpf Ur Squamous Epith Cells (0-4) /hpf Amorphous Sediment (None) /hpf Urine Mucus (None) /hpf 03/14/18 03/14/18 Range/Units 13:54 14:51 WBC (3.8-10.6) k/uL RBC (3.80-5.40) m/uL Hgb (11.4-16.0) gm/dL Hct (34.0-46.0) % MCV (80.0-100.0) fL MCH (25.0-35.0) pg MCHC (31.0-37.0) g/dL RDW (11.5-15.5) % Plt Count (150-450) k/uL Neutrophils % % Lymphocytes % % Monocytes % % Eosinophils % % Basophils % % Neutrophils # (1.3-7.7) k/uL Lymphocytes # (1.0-4.8) k/uL Monocytes # (0-1.0) k/uL Eosinophils # (0-0.7) k/uL Basophils # (0-0.2) k/uL PT (9.0-12.0) sec INR (<1.2) APTT (22.0-30.0) sec Sodium (137-145) mmol/L Potassium (3.5-5.1) mmol/L Chloride (98-107) mmol/L Carbon Dioxide (22-30) mmol/L Anion Gap mmol/L BUN (7-17) mg/dL Creatinine (0.52-1.04) mg/dL Est GFR (CKD-EPI)AfAm (>60 ml/min/1.73 sqM) Est GFR (CKD-EPI)NonAf (>60 ml/min/1.73 sqM) Glucose (74-99) mg/dL POC Glucose (mg/dL) 113 H (75-99) mg/dL POC Glu [employer] ID Karrie Jones Calcium (8.4-10.2) mg/dL Total Bilirubin (0.2-1.3) mg/dL AST (14-36) U/L ALT (9-52) U/L Alkaline Phosphatase (38-126) U/L Total Protein (6.3-8.2) g/dL Albumin (3.5-5.0) g/dL Amylase (30-110) U/L Lipase (23-300) U/L Urine Color Light Yellow Urine Appearance Cloudy H (Clear) Urine pH 5.5 (5.0-8.0) Ur Specific [place] 1.011 (1.001-1.035) Urine Protein Negative (Negative) Urine Glucose (UA) Negative (Negative) Urine Ketones Negative (Negative) Urine Blood Negative (Negative) Urine Nitrite Negative (Negative) Urine Bilirubin Negative (Negative) Urine Urobilinogen <2.0 (<2.0) mg/dL Ur Leukocyte Esterase Large H (Negative) Urine RBC 4 (0-5) /hpf Urine WBC 82 H (0-5) /hpf Ur Squamous Epith Cells 1 (0-4) /hpf Amorphous Sediment Rare H (None) /hpf Urine Mucus Rare H (None) /hpf - Radiology Data Radiology results: report reviewed (Computed tomography scan of the abdomen pelvis shows renal calculi without obstructing stone. Enlargement of right adnexal region. Abdominal x-ray shows no acute process) Disposition Clinical Impression: Flank pain, Urinary tract infection Disposition: HOME SELF-CARE Condition: Stable Instructions: Flank Pain (ED), Urinary Tract Infection in Women (ED) Additional Instructions: Please follow-up with primary care physician in the next day or 2 for recheck. Have primary care physician review reports from today and schedule ultrasound. Return for increased pain, fevers, weakness, loss of control of bowel or bladder , worsening symptoms or other concerns. Prescriptions: Cyclobenzaprine [Flexeril] 10 mg PO TID PRN #12 tablet PRN Reason: Pain Sulfamethox-Tmp 800-160Mg [Bactrim DS 800-160 mg] 1 each PO Q12HR #20 tab Is patient prescribed a controlled substance at d/c from ED?: No Referrals: Beth Godinez MD [Primary Care Provider] - 1-2 days Time of Disposition: 15:45
[2018-03-14 14:05] LABS: Basophils # (A) 0.1 k/uL (0-0.2); Basophils % (A) 1 %; Eosinophils # (A) 0.4 k/uL (0-0.7); Eosinophils % (A) 6 %; HCT 44.4 % (34.0-46.0); HGB 14.1 gm/dL (11.4-16.0); Lymphocytes # (A) 1.8 k/uL (1.0-4.8); Lymphocytes % (A) 30 %; MCH 27.7 pg (25.0-35.0); MCHC 31.8 g/dL (31.0-37.0); MCV 87.1 fL (80.0-100.0); Mean Platelet Volume 6.3; Monocytes # (A) 0.4 k/uL (0-1.0); Monocytes % (A) 7 %; Neutrophils # (A) 3.2 k/uL (1.3-7.7); Neutrophils % (A) 54 %; Platelet Count 325 k/uL (150-450); RDW 13.4 % (11.5-15.5)
[2018-03-14 14:11] LABS: Amorphous Sediment,Urine Rare /hpf; Appearance,Urine Cloudy (Clear); Bilirubin,Urine Negative (Negative); Blood,Urine Negative (Negative); Color,Urine Light Yellow; Glucose,Urine (UA) Negative (Negative); Ketones,Urine Negative (Negative); Leukocyte Esterase,Urine Large (Negative); Mucus,Urine Rare /hpf; Nitrite,Urine Negative (Negative); PH, Urine 5.5 (5.0-8.0); Protein,Urine Negative (Negative); RBC,Urine 4 /hpf (0-5); Specific Gravity,Urine 1.011 (1.001-1.035); Squamous Epithelial Cell,Urine 1 /hpf (0-4); Urobilinogen,Urine <2.0 mg/dL (<2.0); WBC,Urine 82 /hpf (0-5)
[2018-03-14 14:16] LABS: ALT 37 U/L (9-52); AST 23 U/L (14-36); Albumin 3.9 g/dL (3.5-5.0); Alkaline Phosphatase 87 U/L (38-126); Amylase 55 U/L (30-110); Anion Gap 6 mmol/L; Blood Urea Nitrogen 16 mg/dL (7-17); Calcium 9.6 mg/dL (8.4-10.2); Carbon Dioxide 26 mmol/L (22-30); Chloride 109 mmol/L (98-107); Glucose 65 mg/dL (74-99); Lipase 78 U/L (23-300); Potassium 4.1 mmol/L (3.5-5.1); Sodium 141 mmol/L (137-145); Total Bilirubin 0.3 mg/dL (0.2-1.3); Total Protein 6.3 g/dL (6.3-8.2)
--- NOTE | 2018-03-14 14:35 | XR ---
EXAMINATION TYPE: XR KUB DATE OF EXAM: 03/14/2018 2:11 PM CLINICAL HISTORY: Abdominal pain TECHNIQUE: Single supine KUB image of the abdomen is obtained. COMPARISON: Abdominal radiographs 06/10/17 FINDINGS: Surgical clips are again seen in the right upper abdomen and low pelvis. Numerous calcifica tions are again seen in the stomach location of the kidneys and in the low pelvis which have not sign ificantly changed in the interval. No evidence of free intraperitoneal air, dilated large or small bowel. Visualized osseous structures are intact. IMPRESSION: No acute abdominal or pelvic process is evident. Similar calcifications and postsurgical changes.
[2018-03-14 14:57] LABS: Glucose,Whole Blood 113 mg/dL (75-99)
--- NOTE | 2018-03-14 15:28 | CT ---
EXAMINATION TYPE: CT abdomen pelvis wo con DATE OF EXAM: 03/14/2018 HISTORY: Flank pain CT DLP: 575.5 mGycm. Automated Exposure Control for Dose Reduction was Utilized. TECHNIQUE: CT scan of the abdomen and pelvis is performed without oral or IV contrast. COMPARISON: NONE FINDINGS: Within the limitations of a non-contrast study, the following observations are made. LUNG BASES: Bibasilar subsegmental atelectasis. LIVER/GB: Liver is unremarkable. The gallbladder is surgically absent with clips present in the gallb ladder fossa. PANCREAS: No significant abnormality is seen. SPLEEN: No significant abnormality is seen. ADRENALS: No significant abnormality is seen. KIDNEYS: Numerous bilateral nonobstructing renal calculi are evident. The largest on the right measur es up to 6 mm and the largest on the left measures up to 8 mm. These were seen on the prior radiograp h. No hydronephrosis or hydroureter. There is resolution of the previously identified hydronephrosis and hydroureter on the right. BOWEL: No significant abnormality is seen. GENITAL ORGANS: Right adnexal structure measures 4.8 cm with solid and cystic components. This has in creased in size when compared to the previous study 03/31/2016 (previously measuring up to 3.5 cm. Love nikos is surgically absent. LYMPH NODES: No greater than 1cm abdominal or pelvic lymph nodes are appreciated. OSSEOUS STRUCTURES: No significant abnormality is seen. Multiple level degenerative changes of the sp ine. OTHER: Phleboliths are present throughout the low pelvis as well as surgical clips. IMPRESSION: 1. No evidence of obstructing renal calculi. 2. Numerous bilateral nonobstructing renal calculi. Resolution of the previously noted right sided hy droureter nephrosis and hydroureter. 3. Increased size of right adnexal solid and cystic structure. A nonemergent ultrasound is recommende d for further characterization.
[2018-03-14 16:11] VITALS: BP 129/69; PULSE 53; TEMP 97.8
[2018-03-15 12:20] LABS: Hemoglobin A1C 5.6 % (4.0-6.0)
== END 2018-03-14 16:10 | disposition home or self-care (01) ==
LOC: EC 13:22
DX: N39.0 Urinary tract infection, site not specified (principal); N20.0 Calculus of kidney; Z88.1 Allergy status to other antibiotic agents; Z79.899 Other long term (current) drug therapy; Z90.49 Acquired absence of other specified parts of digestive tract
CPT/HCPCS: 36415; 80053; 82150; 83690; 85025; 85610; 85730; 81001; 87086; 83036; 74018; 74176; 99284; 96374; 96375; 96361 ×2; J2765; J1885

== ENCOUNTER → 2018-12-27 | Outpatient (CLI) | payer BC ==
--- NOTE | 2018-12-27 15:22 | XR ---
EXAMINATION TYPE: XR KUB DATE OF EXAM: 12/27/2018 COMPARISON: 03/14/2018 HISTORY: Pain TECHNIQUE: One view abdominal series FINDINGS: The osseous structures are intact. The bowel gas pattern is nonspecific. Postcholecystectomy changes are noted. Kidneys: There are greater than 15 calcifications noted bilaterally the largest is seen involving the right kidney measuring approximately 6 mm. And appears similar morphology and number relative to the prior exam. Pelvis: Surgical clips are noted and there are large calcifications likely vascular. Arthropathy of t he hips noted. IMPRESSION: 1. Stable bilateral nephrolithiasis correlate for medullary sponge kidney..
== END | disposition home or self-care (01) ==
LOC: RADXRMAIN 14:53
PROVIDERS: ATTEND Urology
DX: N20.0 Calculus of kidney (principal)
CPT/HCPCS: 74018; 87086

== ENCOUNTER → 2023-08-20 | Outpatient (CLI) | payer BC ==
--- NOTE | 2023-08-20 14:52 | XR ---
EXAMINATION TYPE: XR KUB DATE OF EXAM: 08/20/2023 1:52 PM CLINICAL INDICATION:Female, 62 years old with history of N20.1,N20.0; [facility] COMPARISON: 03/14/2018. TECHNIQUE: One radiographic view of the abdomen was obtained. FINDINGS: The bowel gas pattern is nonspecific without dilated loops of small or large bowel. There i s no evidence for organomegaly or pneumoperitoneum. The osseous structures are intact. Fecal mater ial and gas are demonstrated throughout the colon and rectum. Multiple pelvic phleboliths are presen t. Surgical clips are present. 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 Multiple calcifications project over the kidneys measuring up to 5 mm on the left and 8 mm on the right. Postsurgical change s with surgical clips in the right upper quadrant. IMPRESSION: 1. Fecaloma in the rectum, otherwise nonspecific bowel gas pattern without radiographic evidence for acute process. 2. Bilateral renal calculi.
== END | disposition home or self-care (01) ==
LOC: RADXRMAIN 13:41
PROVIDERS: ATTEND Urology
DX: N20.2 Calculus of kidney with calculus of ureter (principal)
CPT/HCPCS: 74018

== ENCOUNTER 2024-08-10 14:54 | Inpatient (IN) | payer BC ==
[2024-08-10] MEDS: KETOROLAC 15 MG/ML 1 ML VIAL IVP STA (15:29)
[2024-08-10] MEDS: ONDANSETRON 4 MG/2 ML VIAL IVP STA (15:29)
[2024-08-10] MEDS: SODIUM CHLORIDE 0.9% 500 ML 500 ML IV STA (15:29)
[2024-08-10 15:51] LABS: Basophils % (A) 0 %; Eosinophils # (A) 0.2 k/uL (0-0.7); Eosinophils % (A) 2 %; HCT 46.5 % (34.0-46.0); HGB 14.8 gm/dL (11.4-16.0); Lymphocytes % (A) 13 %; MCH 28.8 pg (25.0-35.0); MCHC 31.9 g/dL (31.0-37.0); MCV 90.3 fL (80.0-100.0); Mean Platelet Volume 6.8; Monocytes # (A) 0.1 k/uL (0-1.0); Monocytes % (A) 1 %; Neutrophils # (A) 6.3 k/uL (1.3-7.7); Neutrophils % (A) 83 %; Platelet Count 282 k/uL (150-450); RBC 5.15 m/uL (3.80-5.40); RDW 13.2 % (11.5-15.5); WBC 7.6 k/uL (3.8-10.6)
[2024-08-10 15:54] LABS: Appearance,Urine Clear (Clear); Bilirubin,Urine Negative (Negative); Blood,Urine Negative (Negative); Color,Urine Colorless; Glucose,Urine (UA) Negative (Negative); Ketones,Urine Negative (Negative); Leukocyte Esterase,Urine Large (Negative); Mucus,Urine Rare /hpf; Nitrite,Urine Negative (Negative); PH, Urine 6.5 (5.0-8.0); Protein,Urine Negative (Negative); RBC,Urine 3 /hpf (0-5); Specific Gravity,Urine 1.013 (1.001-1.035); Urobilinogen,Urine <2.0 mg/dL (<2.0); WBC,Urine 41 /hpf (0-5)
--- NOTE | 2024-08-10 16:00 | ED ---
Female Urogenital HPI - General Chief complaint: Urogenital Stated complaint: abd pain, fever Time Seen by Provider: 08/10/24 15:09 Source: patient, RN notes reviewed Mode of arrival: ambulatory Limitations: no limitations - History of Present Illness Initial comments: This is a 63-year-old female with history of nephrolithiasis presenting with right lower back pain (05/26) x 2 days. Patient states pain is sharp and constant with BLE radiating pain. Endorses associated chills, lightheadedness and nausea/vomiting. Endorses use of Motrin with minimal relief. Denies chest pain, dyspnea, abdominal pain, dysuria, hematuria. MD Complaint: other Onset/Timin -: days(s) - Related Data Home Medications Medication Instructions Recorded Confirmed Eszopiclone [Lunesta] 3 mg PO HS 04/15/16 08/10/24 Allergies Allergy/AdvReac Type Severity Reaction Status Date / Time ciprofloxacin [From Cipro] AdvReac Nausea & Verified 08/10/24 17:33 Vomiting ciprofloxacin HCl AdvReac Nausea & Verified 08/10/24 17:33 [From Cipro] Vomiting Review of Systems ROS Statement: Those systems with pertinent positive or pertinent negative responses have been documented in the HPI. ROS Other: All systems not noted in ROS Statement are negative. Past Medical History Past Medical History: Asthma, Hyperlipidemia Additional Past Medical History / Comment(s): kidney stones History of Any Multi-Drug Resistant Organisms: ESBL Date of last positivie culture/infection: 07/06/16 MDRO Source:: urine kl. pneumo Past Surgical History: Cholecystectomy Additional Past Surgical History / Comment(s): thyroidectomy Past Psychological History: No Psychological Hx Reported Smoking Status: Never smoker Past Alcohol Use History: None Reported Past Drug Use History: None Reported - Past Family History Mother Family Medical History: No Reported History Father Family Medical History: No Reported History General Exam Limitations: no limitations General appearance: alert, in distress Head exam: Present: atraumatic, normocephalic, normal inspection Eye exam: Present: normal appearance, PERRL, EOMI. Absent: scleral icterus, conjunctival injection, periorbital swelling ENT exam: Present: normal exam, mucous membranes moist Neck exam: Present: normal inspection. Absent: tenderness, meningismus, lymphadenopathy Respiratory exam: Present: normal lung sounds bilaterally. Absent: respiratory distress, wheezes, rales, rhonchi, stridor Cardiovascular Exam: Present: regular rate, normal rhythm, normal heart sounds. Absent: systolic murmur, diastolic murmur, rubs, gallop, clicks GI/Abdominal exam: Present: soft, normal bowel sounds. Absent: distended, tenderness, guarding, rebound, rigid Extremities exam: Present: normal inspection, full ROM, normal capillary refill. Absent: tenderness, pedal edema, joint swelling, calf tenderness Back exam: Present: CVA tenderness (R), CVA tenderness (L) Neurological exam: Present: alert, oriented X3, CN II-XII intact Psychiatric exam: Present: normal affect, normal mood Skin exam: Present: warm, dry, intact, normal color. Absent: rash Course Vital Signs 08/10/24 08/10/24 08/10/24 14:58 17:21 18:56 Temperature 99.8 F H 101.8 F H 100.2 F H Pulse Rate 69 97 Pulse Rate [ Pulse Oximetery ] Respiratory 24 20 Rate Blood Pressure 170/95 126/80 Blood Pressure [Right Arm] O2 Sat by Pulse 96 95 Oximetry 08/10/24 08/10/24 20:00 20:22 Temperature 98.6 F 99.1 F Pulse Rate 101 H Pulse Rate [ 72 Pulse Oximetery ] Respiratory 17 18 Rate Blood Pressure 96/64 Blood Pressure 98/64 [Right Arm] O2 Sat by Pulse 96 96 Oximetry Medical Decision Making - Medical Decision Making Was pt. sent in by a medical professional or institution (, [facility], [facility], urgent care, hospital, or snf...) When possible be specific @ -No Did you speak to anyone other than the patient for history (EMS, parent, family, police, friend...)? What history was obtained from this source @ -No Did you review nursing and triage notes (agree or disagree)? Why? @ -I reviewed and agree with nursing and triage notes Were old charts reviewed (outside hosp., previous admission, EMS record, old EKG, old radiological studies, urgent care reports/EKG's, snf records)? Report findings @ -No old charts were reviewed Differential Diagnosis (chest pain, altered mental status, abdominal pain women, abdominal pain men, vaginal bleeding, weakness, fever, dyspnea, syncope, headache, dizziness, GI bleed, back pain, seizure, CVA, palpatations, mental health, musculoskeletal)? @ -Differential Abdominal Pain Women: Appendicitis, Cholecystitis, diverticulosis, ischemic bowel, pancreatitis, hepatitis, UTI, gastroenteritis, AAA, incarcerated hernia, bowel obstruction, constipation, inflammatory bowel, hepatitis, peptic ulcer disease, splenic infarction, perforated viscus, vulvitis, ovarian torsion, PID, kidney stone, placenta abruption, this is not meant to be an all-inclusive list EKG interpreted by me (3pts min.). @ -Sinus tachycardia with RBBB and LAD without ST changes or T wave inversion. Ventricular rate 100 bpm, SETH 150 ms, QRS duration 108 ms, QTc 387 ms. X-rays interpreted by me (1pt min.). @ -None done CT interpreted by me (1pt min.). @ -Abdomen/pelvic CT shows numerous obstructing distal right ureteral calculi up to 7 mm causing moderate upstream hydroureteronephrosis. U/S interpreted by me (1pt. min.). @ -None done What testing was considered but not performed or refused? (CT, X-rays, U/S, labs)? Why? @ -None What meds were considered but not given or refused? Why? @ -None Did you discuss the management of the patient with other professionals (professionals i.e. , PA, H[employer] MAN, lab, RT, psych nurse, social service worker, palletizer operator, teacher, president and chief executive officer, case management associate)? Give summary @ - Due to obstructing nephrolithiasis with intractable pain and associated fever with CVA tenderness, patient admitted after speaking to Dr. Palmer at Dr. Mcadams from urology, the latter who recommended patient be n.p.o. Was smoking cessation discussed for >3mins.? @ -No Was critical care preformed (if so, how long)? @ -No Were there social determinants of health that impacted care today? How? (Homelessness, low income, unemployed, alcoholism, drug addiction, transportation, low edu. Level, literacy, decrease access to med. care, senior living, rehab)? @ -No Was there de-escalation of care discussed even if they declined (Discuss DNR or withdrawal of care, Hospice)? DNR status @ -No What co-morbidities impacted this encounter? (DM, HTN, Smoking, COPD, CAD, Cancer, CVA, ARF, Chemo, Hep., AIDS, mental health diagnosis, sleep apnea, morbid obesity)? @ -None Was patient admitted / discharged? Hospital course, mention meds given and route, prescriptions, significant lab abnormalities, going to OR and other pertinent info. @ -Lab work largely unremarkable including negative lactic acid and troponin. UA shows white blood cells on leukocytes likely due to irritation/inflammation. Abdomen/pelvic CT shows numerous obstructing distal right ureteral calculi up to 7 mm causing moderate upstream hydroureteronephrosis. Subsequent temperature taken shows fever of 101.8F. Patient initially given normal saline and Toradol with Zofran. Rocephin, Flomax and Tylenol following discovery of fever and nephrolithiasis. Due to obstructing nephrolithiasis with intractable pain and associated fever with CVA tenderness, patient admitted after speaking to Dr. Palmer at Dr. Mcadams from urology, the latter who recommended patient be n.p.o. Undiagnosed new problem with uncertain prognosis? @ -No Drug Therapy requiring intensive monitoring for toxicity (Heparin, Nitro, Insulin, Cardizem)? @ -No Were any procedures done? @ -No Diagnosis/symptom? @ -Nephrolithiasis with fever Acute, or Chronic, or Acute on Chronic? @ -Acute Uncomplicated (without systemic symptoms) or Complicated (systemic symptoms)? @ -Complicated Side effects of treatment? @ -No Exacerbation, Progression, or Severe Exacerbation? @ -No Poses a threat to life or bodily function? How? (Chest pain, USA, PA, pneumonia, PE, COPD, DKA, ARF, appy, cholecystitis, CVA, Diverticulitis, Homicidal, Suicidal, threat to staff... and all critical care pts) @ -No - Lab Data Result diagrams: 08/10/24 15:27 08/10/24 15:27 Lab Results 08/10/24 08/10/24 08/10/24 Range/Units 15:27 15:27 15:27 WBC 7.6 (3.8-10.6) k/uL RBC 5.15 (3.80-5.40) m/uL Hgb 14.8 (11.4-16.0) gm/dL Hct 46.5 H (34.0-46.0) % MCV 90.3 (80.0-100.0) fL MCH 28.8 (25.0-35.0) pg MCHC 31.9 (31.0-37.0) g/dL RDW 13.2 (11.5-15.5) % Plt Count 282 (150-450) k/uL MPV 6.8 Neutrophils % 83 % Lymphocytes % 13 % Monocytes % 1 % Eosinophils % 2 % Basophils % 0 % Neutrophils # 6.3 (1.3-7.7) k/uL Lymphocytes # 1.0 (1.0-4.8) k/uL Monocytes # 0.1 (0-1.0) k/uL Eosinophils # 0.2 (0-0.7) k/uL Basophils # 0.0 (0-0.2) k/uL PT (10.0-12.5) sec INR (<1.2) APTT (22.0-30.0) sec Sodium 141 (137-145) mmol/L Potassium 4.6 (3.5-5.1) mmol/L Chloride 110 H (98-107) mmol/L Carbon Dioxide 22 (22-30) mmol/L Anion Gap 9 mmol/L BUN 22 H (7-17) mg/dL Creatinine 1.33 H (0.52-1.04) mg/dL Est GFR (CKD-EPI)AfAm 49 (>60 ml/min/1.73 sqM) Est GFR (CKD-EPI)NonAf 42 (>60 ml/min/1.73 sqM) Glucose 95 (74-99) mg/dL Calcium 9.7 (8.4-10.2) mg/dL Total Bilirubin 0.7 (0.2-1.3) mg/dL AST 27 (14-36) U/L ALT 22 (4-34) U/L Alkaline Phosphatase 96 (38-126) U/L Troponin I (0.000-0.034) ng/mL Total Protein 7.1 (6.3-8.2) g/dL Albumin 4.5 (3.5-5.0) g/dL Urine Color Colorless Urine Appearance Clear (Clear) Urine pH 6.5 (5.0-8.0) Ur Specific [place] 1.013 (1.001-1.035) Urine Protein Negative (Negative) Urine Glucose (UA) Negative (Negative) Urine Ketones Negative (Negative) Urine Blood Negative (Negative) Urine Nitrite Negative (Negative) Urine Bilirubin Negative (Negative) Urine Urobilinogen <2.0 (<2.0) mg/dL Ur Leukocyte Esterase Large H (Negative) Urine RBC 3 (0-5) /hpf Urine WBC 41 H (0-5) /hpf Urine Mucus Rare H (None) /hpf 08/10/24 08/10/24 Range/Units 17:01 17:01 WBC (3.8-10.6) k/uL RBC (3.80-5.40) m/uL Hgb (11.4-16.0) gm/dL Hct (34.0-46.0) % MCV (80.0-100.0) fL MCH (25.0-35.0) pg MCHC (31.0-37.0) g/dL RDW (11.5-15.5) % Plt Count (150-450) k/uL MPV Neutrophils % % Lymphocytes % % Monocytes % % Eosinophils % % Basophils % % Neutrophils # (1.3-7.7) k/uL Lymphocytes # (1.0-4.8) k/uL Monocytes # (0-1.0) k/uL Eosinophils # (0-0.7) k/uL Basophils # (0-0.2) k/uL PT 10.7 (10.0-12.5) sec INR 1.0 (<1.2) APTT 20.0 L (22.0-30.0) sec Sodium (137-145) mmol/L Potassium (3.5-5.1) mmol/L Chloride (98-107) mmol/L Carbon Dioxide (22-30) mmol/L Anion Gap mmol/L BUN (7-17) mg/dL Creatinine (0.52-1.04) mg/dL Est GFR (CKD-EPI)AfAm (>60 ml/min/1.73 sqM) Est GFR (CKD-EPI)NonAf (>60 ml/min/1.73 sqM) Glucose (74-99) mg/dL Calcium (8.4-10.2) mg/dL Total Bilirubin (0.2-1.3) mg/dL AST (14-36) U/L ALT (4-34) U/L Alkaline Phosphatase (38-126) U/L Troponin I <0.012 (0.000-0.034) ng/mL Total Protein (6.3-8.2) g/dL Albumin (3.5-5.0) g/dL Urine Color Urine Appearance (Clear) Urine pH (5.0-8.0) Ur Specific [place] (1.001-1.035) Urine Protein (Negative) Urine Glucose (UA) (Negative) Urine Ketones (Negative) Urine Blood (Negative) Urine Nitrite (Negative) Urine Bilirubin (Negative) Urine Urobilinogen (<2.0) mg/dL Ur Leukocyte Esterase (Negative) Urine RBC (0-5) /hpf Urine WBC (0-5) /hpf Urine Mucus (None) /hpf Disposition Clinical Impression: Nephrolithiasis Disposition: ADMITTED IP TO THIS [facility] Condition: Stable Is patient prescribed a controlled substance at d/c from ED?: No Time of Disposition: 17:50 Decision Date: 08/10/24 Decision Time: 17:50
[2024-08-10 16:02] LABS: ALT 22 U/L (4-34); AST 27 U/L (14-36); African American GFR (CKD) 49 (>60 ml/min/1.73 sqM); Albumin 4.5 g/dL (3.5-5.0); Alkaline Phosphatase 96 U/L (38-126); Anion Gap 9 mmol/L; Blood Urea Nitrogen 22 mg/dL (7-17); Calcium 9.7 mg/dL (8.4-10.2); Carbon Dioxide 22 mmol/L (22-30); Chloride 110 mmol/L (98-107); Glucose 95 mg/dL (74-99); Non-African American GFR(CKD) 42 (>60 ml/min/1.73 sqM); Potassium 4.6 mmol/L (3.5-5.1); Sodium 141 mmol/L (137-145); Total Bilirubin 0.7 mg/dL (0.2-1.3); Total Protein 7.1 g/dL (6.3-8.2)
--- NOTE | 2024-08-10 16:50 | CT ---
EXAMINATION TYPE: CT abdomen pelvis wo con DATE OF EXAM: 08/10/2024 4:32 PM COMPARISON: Previous CT abdomen/pelvis study 03/14/2018. CLINICAL INDICATION: Female, 63 years old with history of Low back/spine pain/TTP, h/o nephrolithiasi s; TECHNIQUE: Axial CT abdomen pelvis wo con;Sagittal and coronal reformats were created on a separate workstation. FINDINGS: LOWER CHEST: Unremarkable ABDOMEN LIVER: Unremarkable GALLBLADDER AND BILE DUCTS: The gallbladder is surgically absent. PANCREAS: Unremarkable. SPLEEN: Unremarkable. ADRENAL GLANDS: Unremarkable. KIDNEYS AND URETERS: Numerous bilateral nonobstructing renal calculi measuring up to 2.0 cm in the mi d/superior right kidney/collecting system. Moderate right-sided hydroureteronephrosis with numerous l ayering calculi in the distal right ureter measuring up to 8 mm. PELVIS BLADDER: No evidence for wall thickening or mass given limitations of exam. REPRODUCTIVE: Uterus surgically absent. Prominence of the usual right ovary, similar to prior study. ABDOMEN & PELVIS STOMACH AND BOWEL: Stomach and duodenum are unremarkable No evidence of bowel obstruction. PERITONEUM/RETROPERITONEUM: No evidence of pneumoperitoneum or free fluid. VASCULATURE: No evidence of aortic aneurysm. MUSCULOSKELETAL: No acute osseous abnormalities. Osseous structures demineralized. Grade 1 anterolist hesis of L4 and L5 and retrolisthesis of L2 on L3. LYMPH NODES: No gross evidence for lymphadenopathy. SOFT TISSUE/ABDOMINAL WALL: Small fat-containing right inguinal hernia. IMPRESSION: 1. Numerous obstructing distal right ureteral calculi measuring up to 7 mm causing moderate upstream hydroureteronephrosis. 2. Numerous additional bilateral nonobstructing renal calculi. [facility], , 08/10/2024 4:48 PM
[2024-08-10] MEDS: SODIUM CHLORIDE 0.9% 1,000 ML IV STA (17:20)
[2024-08-10 17:39] LABS: Prothrombin Time 10.7 sec (10.0-12.5)
[2024-08-10] MEDS: ACETAMINOPHEN TAB 325 MG TAB PO STA (17:48)
[2024-08-10] MEDS ORDERED: NALOXONE 0.4 MG/ML 1 ML VIAL IV PRN (17:48)
[2024-08-10] MEDS: cefTRIAXone IN SWFI 1,000 MG/10 ML SYRINGE IVP STA (17:49)
[2024-08-10] MEDS: TAMSULOSIN 0.4 MG CAP.ER.24H PO STA (17:49)
[2024-08-10] MEDS: SODIUM CHLORIDE 0.9% 1,000 ML IV SCH (20:27)
[2024-08-10] MEDS: HYDROmorphone 0.5 MG/0.5 ML SYRINGE IVP PRN (22:33)
[2024-08-11] MEDS: KETOROLAC 15 MG/ML 1 ML VIAL IVP PRN (00:58)
[2024-08-11] MEDS: ACETAMINOPHEN TAB 500 MG TAB PO PRN (04:24)
--- NOTE | 2024-08-11 09:17 | P.GSCN ---
History of Present Illness Consult date: 08/11/24 Reason for Consult: Right ureteral stone, hydronephrosis History of present illness: This is a 63-year-old female with history of recurrent kidney stones. Presented to the hospital with intractable right flank pain associated with nausea and vomiting. She underwent a CT abdomen pelvis that showed evidence of multiple right sided distal ureteral stone causing hydronephrosis, larger stones measuring 7 mm. Urinalysis also is concerning for UTI. Does have history of recurrent kidney stones requiring ureteroscopy with holmium laser in the past. Morning she is spiking low-grade fevers, and her blood pressure is downtrending. On evaluation she continues to have persistent right flank pain Review of Systems - Constitutional Reports chills, Reports fever, Denies weight loss - EENT Ears, nose, mouth and throat: Denies dysphagia - Cardiovascular Denies chest pain, Denies shortness of breath - Respiratory Denies cough, Denies 7 - Gastrointestinal Reports abdominal pain, Reports nausea, Reports vomiting - Genitourinary Genitourinary: Reports flank pain, Reports kidney stones - Integumentary Denies rash, Denies unusual bruising - Neurological Denies headaches, Denies syncope Past Medical History Past Medical History: Asthma, Hyperlipidemia Additional Past Medical History / Comment(s): kidney stones History of Any Multi-Drug Resistant Organisms: ESBL Year Discovered:: 07/06/16 MDRO Source:: urine kl. pneumo Past Surgical History: Cholecystectomy Additional Past Surgical History / Comment(s): thyroidectomy Past Anesthesia/Blood Transfusion Reactions: No Reported Reaction Past Psychological History: No Psychological Hx Reported Smoking Status: Never smoker Past Alcohol Use History: None Reported Past Drug Use History: None Reported - Past Family History Mother Family Medical History: No Reported History Father Family Medical History: No Reported History Medications and Allergies Home Medications Medication Instructions Recorded Confirmed Type Eszopiclone [Lunesta] 3 mg PO HS 04/15/16 08/10/24 History Allergies Allergy/AdvReac Type Severity Reaction Status Date / Time ciprofloxacin [From Cipro] AdvReac Nausea & Verified 08/10/24 17:33 Vomiting ciprofloxacin HCl AdvReac Nausea & Verified 08/10/24 17:33 [From Cipro] Vomiting Surgical - Exam Vital Signs Temp Pulse Resp BP Pulse Ox 99.8 F H 69 24 170/95 96 08/10/24 14:58 08/10/24 14:58 08/10/24 14:58 08/10/24 14:58 08/10/24 14:58 - General no distress, moderate pain - Eyes normal ocular movement, no pale - ENT normal nares, normal mucosa - Respiratory normal expansion, normal respiratory effort - Abdomen Abdomen: soft, tender (Right upper abdomen, flank), no distended - Psychiatric oriented to time, oriented to person, oriented to place Results - Labs 08/10/24 15:27 08/10/24 15:27 Abnormal Lab Results - Last 24 Hours (Table) 08/10/24 08/10/24 08/10/24 Range/Units 15:27 15:27 15:27 Hct 46.5 H (34.0-46.0) % APTT (22.0-30.0) sec Chloride 110 H (98-107) mmol/L BUN 22 H (7-17) mg/dL Creatinine 1.33 H (0.52-1.04) mg/dL Ur Leukocyte Esterase Large H (Negative) Urine WBC 41 H (0-5) /hpf Urine Mucus Rare H (None) /hpf 08/10/24 Range/Units 17:01 Hct (34.0-46.0) % APTT 20.0 L (22.0-30.0) sec Chloride (98-107) mmol/L BUN (7-17) mg/dL Creatinine (0.52-1.04) mg/dL Ur Leukocyte Esterase (Negative) Urine WBC (0-5) /hpf Urine Mucus (None) /hpf Diabetes panel 08/10/24 Range/Units 15:27 Sodium 141 (137-145) mmol/L Potassium 4.6 (3.5-5.1) mmol/L Chloride 110 H (98-107) mmol/L Carbon Dioxide 22 (22-30) mmol/L BUN 22 H (7-17) mg/dL Creatinine 1.33 H (0.52-1.04) mg/dL Glucose 95 (74-99) mg/dL Calcium 9.7 (8.4-10.2) mg/dL AST 27 (14-36) U/L ALT 22 (4-34) U/L Alkaline Phosphatase 96 (38-126) U/L Total Protein 7.1 (6.3-8.2) g/dL Albumin 4.5 (3.5-5.0) g/dL Calcium panel 08/10/24 Range/Units 15:27 Calcium 9.7 (8.4-10.2) mg/dL Albumin 4.5 (3.5-5.0) g/dL Pituitary panel 08/10/24 Range/Units 15:27 Sodium 141 (137-145) mmol/L Potassium 4.6 (3.5-5.1) mmol/L Chloride 110 H (98-107) mmol/L Carbon Dioxide 22 (22-30) mmol/L BUN 22 H (7-17) mg/dL Creatinine 1.33 H (0.52-1.04) mg/dL Glucose 95 (74-99) mg/dL Calcium 9.7 (8.4-10.2) mg/dL Adrenal panel 08/10/24 Range/Units 15:27 Sodium 141 (137-145) mmol/L Potassium 4.6 (3.5-5.1) mmol/L Chloride 110 H (98-107) mmol/L Carbon Dioxide 22 (22-30) mmol/L BUN 22 H (7-17) mg/dL Creatinine 1.33 H (0.52-1.04) mg/dL Glucose 95 (74-99) mg/dL Calcium 9.7 (8.4-10.2) mg/dL Total Bilirubin 0.7 (0.2-1.3) mg/dL AST 27 (14-36) U/L ALT 22 (4-34) U/L Alkaline Phosphatase 96 (38-126) U/L Total Protein 7.1 (6.3-8.2) g/dL Albumin 4.5 (3.5-5.0) g/dL Assessment and Plan Assessment: 63-year-old female with history of right-sided distal ureteral stone, patient is getting septic secondary to her stone. Discussed given this finding I do recommend proceeding with stent insertion to allow for decompression of the collecting system. Risk-benefit and rationale of surgery was discussed with details. Discussed she will eventually require right-sided ureteroscopy with holmium laser once the infection resolves -N.p.o. -OR for cystoscopy with right-sided stent insertion
[2024-08-11] MEDS: ONDANSETRON 4 MG/2 ML VIAL IVP PRN (09:57)
[2024-08-11] MEDS: DEXAMETHASONE SOD PHOSPHATE 4 MG/ML 1 ML VIAL IVP STA (09:57)
[2024-08-11] MEDS: SODIUM CHLORIDE 0.9% 1,000 ML IV ONE (10:00)
[2024-08-11] MEDS ORDERED: MIDAZOLAM 2 MG/2 ML VIAL ONE (10:35)
[2024-08-11] MEDS ORDERED: KETAMINE HCL IN 0.9 % NACL 50 MG/5 ML SYRINGE ONE (10:35)
--- NOTE | 2024-08-11 11:09 | P.OP ---
Date of Procedure: 08/11/24 Preoperative Diagnosis: Right hydronephrosis secondary to right ureteral calculi Postoperative Diagnosis: Same Procedure(s) Performed: Cystoscopy, right ureteral stent insertion Anesthesia: MAC Surgeon: Mark Moss Estimated Blood Loss (ml): 0 IV fluids (ml): 50 Pathology: none sent Condition: stable Disposition: PACU Indications for Procedure: The patient is a 63-year-old white female with a history of recurrent urolithiasis. She presented to the ER yesterday with pain and was found to have right hydronephrosis due to right distal ureteral calculi measuring up to 8 mm in size. Urinalysis is suggestive of infection, and she has developed a low- grade fever. She now comes for stent placement. Operative Findings: Successful right ureteral stent insertion. Description of Procedure: The patient was taken to the operating room and placed in the dorsolithotomy position, with legs supported in Jose David stirrups. The external genitalia was prepped and draped sterilely. The 30 lens was used to introduce the 22-Tamazight Stortz cystoscopic sheath through the urethra and into the bladder under direct vision. The bladder was examined in its entirety. Both ureteral orifices were of normal anatomic location and configuration. No tumors or foreign bodies were seen. A 0.035 inch Glidewire was passed through the cystoscope. The right ureteral orifice was cannulated, and the Glidewire was slowly advanced up to the renal pelvis. A 26 cm, 6-Tamazight double-J ureteral stent was placed over the wire. Proper stent positioning was verified fluoroscopically and endoscopically. The bladder was emptied and the cystoscope removed. The patient tolerated the procedure well and was taken to the recovery room in stable condition.
[2024-08-11] MEDS: IV FLUID CONTINUATION 1,000 ML IV ONE ×2 (11:10→12:30)
--- NOTE | 2024-08-11 11:14 | FL ---
EXAMINATION TYPE: FL guidance operating room DATE OF EXAM: 08/11/2024 HISTORY: Fluoroscopy time Total dose area product (DAP) in uGy*m?, mGy*cm? (or similar): 0.6024 IMPRESSION: 1. Fluoroscopy time. [facility], , 08/11/2024 11:11 AM
[2024-08-11] MEDS: SODIUM CHLORIDE 0.9% 500 ML 500 ML IV ONE (13:24)
--- NOTE | 2024-08-11 15:38 | P.HPIM ---
History of Present Illness H&P Date: 08/11/24 History of present illness; Patient is 63-year-old female with history of nephrolithiasis presenting with right lower back pain. Symptoms began 2 days ago, patient took Motrin which improved symptoms. Later her pain continued to progress and she had associated chills, lightheadedness, nausea and vomiting. At that time pain was radiating from right loin to groin, and she began having associated fever. Patient does attest to having similar presentation with nephrolithiasis 8 years ago. Current ly patient is denying continued back pain, chest pain, nausea, vomiting since admission. She also denies chest pain, shortness of breath, fever, abdominal pain, dysuria. Labs performed in ER significant for WBC 7.6, BUN 22, creatinine 1.33, lactic acid 1.3, troponin negative, UA with leukocyte esterase large, and 41 WBC. EKG done in the ER independently interpreted showed sinus tachycardia with RBBB, heart rate of 100, no ST segment elevation or depression seen, no T-wave inversions seen. Abdomen soft pelvis CT significant for numerous obstructing distal right ureteral calculi measuring up to 7 mm causing moderate upstream hydroureteronephrosis, also numerous bilateral nonobstructing renal calculi. Spoke with the ER physician, patient admission was accepted by internal medicine service for treatment. REVIEW OF SYSTEMS: Pertinent positives and negatives noted in HPI. PHYSICAL EXAMINATION: Vitals reviewed GENERAL: No acute distress. Well developed, well nourished. HEENT: Pupils are round and equally reacting to light. EOMI. No scleral icterus. CARDIOVASCULAR: S1 and S2 present. No murmurs, rubs, or gallops. PULMONARY: Chest is clear to auscultation, no wheezing, rhonchi, or crackles. ABDOMEN: Soft, nontender, nondistended, normoactive bowel sounds. No palpable organomegaly. MUSCULOSKELETAL: No apparent joint swelling and deformities. EXTREMITIES: No apparent cyanosis, clubbing, or pedal edema. NEUROLOGICAL: The patient is alert and oriented x3, Gross neurological examination did not reveal any focal deficits. SKIN: No apparent rashes. Assessment and plan Patient is 63-year-old female with history of nephrolithiasis presenting with right lower back pain. # Right sided nephrolithiasis with hydroureteronephrosis s/p right ureteral stent insertion #UTI Begin ketorolac IVP every 6 hours, and Dilaudid IVP every 3 hours, acetam inophen 500 mg every 4 hours as needed for pain Begin IV NS at 130 Begin Zofran every 8 hours as needed for nausea and vomiting Continue ceftriaxone 2 g daily Blood culture and urine culture pending Urology following Infectious disease following #BEBE, likely due to above Initial BUN 22, creatinine 1.33 Continue IV fluids Continue monitor #Insomnia Continue home medications F: IV Normal saline 130 mL/h E: Replete as needed N: Regular diet DVT ppx: Subq Lovenox 40 meq daily Code status: Full code Anticipated discharge place: Home Anticipated discharge time: 2 to 3 days Dictation was produced using [employer] dictation software. Please excuse any g rammatical, word or spelling errors. Attestation I have seen and examined this patient with my resident , discussed the same with the resident/BHAVANA, and agree with the dictator's assessment and plan as written Dr. Jeyson santana Past Medical History Past Medical History: Asthma, Hyperlipidemia Additional Past Medical History / Comment(s): kidney stones History of Any Multi-Drug Resistant Organisms: ESBL Date of last positivie culture/infection: 07/06/16 MDRO Source:: urine kl. pneumo Past Surgical History: Cholecystectomy Additional Past Surgical History / Comment(s): thyroidectomy Past Anesthesia/Blood Transfusion Reactions: No Reported Reaction Past Psychological History: No Psychological Hx Reported Smoking Status: Never smoker Past Alcohol Use History: None Reported Past Drug Use History: None Reported - Past Family History Mother Family Medical History: No Reported History Father Family Medical History: No Reported History Medications and Allergies Home Medications Medication Instructions Recorded Confirmed Type Eszopiclone [Lunesta] 3 mg PO HS 04/15/16 08/10/24 History Allergies Allergy/AdvReac Type Severity Reaction Status Date / Time ciprofloxacin [From Cipro] AdvReac Nausea & Verified 08/11/24 09:29 Vomiting ciprofloxacin HCl AdvReac Nausea & Verified 08/11/24 09:29 [From Cipro] Vomiting Physical Exam Vitals: Vital Signs Temp Pulse Pulse Resp BP BP Pulse Ox 08/11/24 09:35 98 F 68 16 83/47 94 L 08/11/24 06:43 100.4 F H 90 18 97/59 90 L 08/11/24 04:19 99/62 08/11/24 01:15 98.8 F 78 18 88/54 95 08/10/24 20:22 99.1 F 101 H 18 96/64 96 08/10/24 20:00 98.6 F 72 17 98/64 96 08/10/24 18:56 100.2 F H 97 20 126/80 95 08/10/24 17:21 101.8 F H 08/10/24 14:58 99.8 F H 69 24 170/95 96 Intake and Output 08/10/24 08/11/24 08/11/24 22:59 06:59 14:59 Other: Voiding Method Toilet Weight 81.647 kg Results CBC & Chem 7: 08/12/24 02:59 08/12/24 02:59 Labs: Abnormal Lab Results - Last 24 Hours (Table) 08/10/24 08/10/24 08/10/24 Range/Units 15:27 15:27 15:27 Hct 46.5 H (34.0-46.0) % APTT (22.0-30.0) sec Chloride 110 H (98-107) mmol/L BUN 22 H (7-17) mg/dL Creatinine 1.33 H (0.52-1.04) mg/dL Ur Leukocyte Esterase Large H (Negative) Urine WBC 41 H (0-5) /hpf Urine Mucus Rare H (None) /hpf 08/10/24 Range/Units 17:01 Hct (34.0-46.0) % APTT 20.0 L (22.0-30.0) sec Chloride (98-107) mmol/L BUN (7-17) mg/dL Creatinine (0.52-1.04) mg/dL Ur Leukocyte Esterase (Negative) Urine WBC (0-5) /hpf Urine Mucus (None) /hpf Thrombosis Risk Factor Assmnt - Choose All That Apply Any of the Below Risk Factors Present?: No Other Risk Factors: Yes Each Risk Factor Represents 2 Points: Age 61-74 years Each Risk Factor Represents 3 Points: Family history of DVT/PE Other congenital or acquired thrombophilia - If yes, enter type in comment: No Thrombosis Risk Factor Assessment Total Risk Factor Score: 5 Thrombosis Risk Factor Assessment Level: High Risk
[2024-08-11] MEDS: IBUPROFEN 400 MG TAB PO PRN (20:01)
--- NOTE | 2024-08-11 23:29 | P.CONS ---
History of Present Illness - Reason for Consult Consult date: 08/11/24 Complicated UTI Requesting physician: Jeyson Palmer - Chief Complaint Right flank pain and vomiting x 2 days - History of Present Illness Patient is 63-year-old female with a past medical history significant for asthma hyperlipidemia kidney stone presenting to the hospital for evaluation of right flank pain that apparently has been getting worse over the last 2 days patient was described the pain to be sharp almost 10 of 10 in severity by the time she presented to hospital and was radiating to the right groin patient did have associated fever and chills along with lightheadedness and episode of nausea and vomiting patient denies having any dysuria frequency or hematuria on presentation to the hospital patient did have a temperature of 101.8 F patient was not tachycardic hypotensive or hypoxic patient did have white count of 7.6 creatinine is 1.33 liver enzymes are normal urine was positive culture pending patient did have abdominal pelvis CT numerous obstructing distal right ureteral calculi measuring up to 7 mm, patient has been evaluated by urology and the patient status post cystoscopy and right ureteral stent placement infectious disease was consulted concerning for complicated UTI Review of Systems Positive point and negatives has been mentioned in the HPI, complete review of systems was performed and all other systems are negative Past Medical History Past Medical History: Asthma, Hyperlipidemia Additional Past Medical History / Comment(s): kidney stones History of Any Multi-Drug Resistant Organisms: ESBL Year Discovered:: 07/06/16 MDRO Source:: urine kl. pneumo Past Surgical History: Cholecystectomy Additional Past Surgical History / Comment(s): thyroidectomy Past Anesthesia/Blood Transfusion Reactions: No Reported Reaction Past Psychological History: No Psychological Hx Reported Smoking Status: Never smoker Past Alcohol Use History: None Reported Past Drug Use History: None Reported - Past Family History Mother Family Medical History: No Reported History Father Family Medical History: No Reported History Medications and Allergies Home Medications Medication Instructions Recorded Confirmed Type Eszopiclone [Lunesta] 3 mg PO HS 04/15/16 08/10/24 History Allergies Allergy/AdvReac Type Severity Reaction Status Date / Time ciprofloxacin [From Cipro] AdvReac Nausea & Verified 08/11/24 09:29 Vomiting ciprofloxacin HCl AdvReac Nausea & Verified 08/11/24 09:29 [From Cipro] Vomiting Physical Exam Vitals: Vital Signs Temp Pulse Pulse Resp BP BP Pulse Ox 08/11/24 12:00 65 15 90/55 97 08/11/24 11:40 68 17 86/54 97 08/11/24 11:25 69 16 87/49 97 08/11/24 11:10 97.7 F 69 16 95/50 98 08/11/24 10:08 63 16 82/53 96 08/11/24 09:35 98 F 68 16 83/47 94 L 08/11/24 09:10 98.5 F 08/11/24 06:43 100.4 F H 90 18 97/59 90 L 08/11/24 04:19 99/62 08/11/24 01:15 98.8 F 78 18 88/54 95 08/10/24 20:22 99.1 F 101 H 18 96/64 96 08/10/24 20:00 98.6 F 72 17 98/64 96 08/10/24 18:56 100.2 F H 97 20 126/80 95 08/10/24 17:41 98.5 F 08/10/24 17:21 101.8 F H 08/10/24 14:58 99.8 F H 69 24 170/95 96 Intake and Output 08/10/24 08/11/24 08/11/24 22:59 06:59 14:59 Intake Total 1000 Balance 1000 Intake: IV 1000 Other: Voiding Method Toilet Weight 81.647 kg 81.647 kg GENERAL DESCRIPTION: Middle-aged female lying in bed, no distress. No tachypnea or accessory muscle of respiration use. HEENT: Shows Pallor , no scleral icterus. Oral mucous membrane is dry. No pharyngeal erythema or thrush NECK: Trachea central, no thyromegaly. LUNGS: Unlabored breathing. Clear to auscultation anteriorly. No wheeze or crackle. HEART: S1, S2, regular rate and rhythm. No loud murmur ABDOMEN: Soft, no tenderness , guarding or rigidity, no organomegaly EXTREMITIES: No edema of feet. SKIN: No rash, no masses palpable. NEUROLOGICAL: The patient is awake, alert, oriented x3, mood and affect normal. Results CBC & Chem 7: 08/10/24 15:27 08/10/24 15:27 Labs: Abnormal Lab Results - Last 24 Hours (Table) 08/10/24 08/10/24 08/10/24 Range/Units 15:27 15:27 15:27 Hct 46.5 H (34.0-46.0) % APTT (22.0-30.0) sec Chloride 110 H (98-107) mmol/L BUN 22 H (7-17) mg/dL Creatinine 1.33 H (0.52-1.04) mg/dL Ur Leukocyte Esterase Large H (Negative) Urine WBC 41 H (0-5) /hpf Urine Mucus Rare H (None) /hpf 08/10/24 Range/Units 17:01 Hct (34.0-46.0) % APTT 20.0 L (22.0-30.0) sec Chloride (98-107) mmol/L BUN (7-17) mg/dL Creatinine (0.52-1.04) mg/dL Ur Leukocyte Esterase (Negative) Urine WBC (0-5) /hpf Urine Mucus (None) /hpf Assessment and Plan (1) Complicated UTI (urinary tract infection) Current Visit: Yes Status: Acute Code(s): N39.0 - URINARY TRACT INFECTION, SITE NOT SPECIFIED SNOMED Code(s): 17666055 (2) 4-quinolones allergy Current Visit: Yes Status: Acute Code(s): Z88.1 - ALLERGY STATUS TO OTHER ANTIBIOTIC AGENTS SNOMED Code(s): 057804075 (3) Urinary tract infection Current Visit: No Status: Acute Code(s): N39.0 - URINARY TRACT INFECTION, SITE NOT SPECIFIED SNOMED Code(s): 84848792 Plan: 1patient presented to hospital with right flank pain nausea and vomiting in this patient who did have a complicated UTI with right-sided hydronephrosis requiring cystoscopy and right 20 stent placement will need to cover for the enteric gram-negative pathogen to be the likely etiology 2-Cipro allergy 3-mild elevated creatinine 4-Rocephin 2 g daily while waiting for the culture to finalize We will follow on clinical condition and cultures to further adjust medication if needed Thank you for this consultation we will follow the patient along with you Dictation was produced using [employer] software. please excuse any grammatical, word or spelling errors. Time with Patient: Greater than 30
[2024-08-12] MEDS: TEMAZEPAM 15 MG CAP PO SCH (00:56)
[2024-08-12] MEDS: ENOXAPARIN 40 MG/0.4 ML SYRINGE SQ SCH (08:16)
[2024-08-12 08:36] LABS: Carbon Dioxide 20.2 mmol/L (21.6-31.8); Chloride 111 mmol/L (96-109); Glucose 117 mg/dL (70-110); HCT 36.2 % (37.2-46.3); HGB 11.4 g/dL (12.0-15.0); MCH 28.8 pg (27.0-32.0); MCHC 31.5 g/dL (32.0-37.0); MCV 91.4 FL (80.0-97.0); Mean Platelet Volume 9.8 FL (9.5-12.2); NRBC Per 100 WBC 0 X 10*3/uL (0.00-0.01); Platelet Count 195 X 10*3/uL (140-440); Potassium 4.3 mmol/L (3.5-5.5); RBC 3.96 X 10*6/uL (4.10-5.20); RDW 14.4 % (11.5-14.5); Sodium 139 mmol/L (135-145); WBC 20.81 X 10*3/uL (4.50-10.00)
[2024-08-12 08:37] LABS: Calcium 8.2 mg/dL (8.7-10.3)
--- NOTE | 2024-08-12 13:59 | P.PN ---
Subjective Progress Note Date: 08/12/24 History of present illness; Patient is 63-year-old female with history of nephrolithiasis presenting with r ight lower back pain. Symptoms began 2 days ago, patient took Motrin which improved symptoms. Later her pain continued to progress and she had associated chills, lightheadedness, nausea and vomiting. At that time pain was radiating from right loin to groin, and she began having associated fever. Patient does attest to having similar presentation with nephrolithiasis 8 years ago. Currently patient is denying continued back pain, chest pain, nausea, vomiting since admission. She also denies chest pain, shortness of breath, fever, abdominal pain, dysuria. Labs performed in ER significant for WBC 7.6, BUN 22, creatinine 1.33, lactic acid 1.3, troponin negative, UA with leukocyte esterase large, and 41 WBC. EKG done in the ER independently interpreted showed sinus tachycardia with RBBB , heart rate of 100, no ST segment elevation or depression seen, no T-wave inversions seen. Abdomen soft pelvis CT significant for numerous obstructing distal right ureteral calculi measuring up to 7 mm causing moderate upstream hydroureteronephrosis, also numerous bilateral nonobstructing renal calculi. 08/12/2024 Patient seen and examined at bedside. No acute events overnight. She does endorse some mild intermittent abdominal pain. Blood culture positive for gram- positive cocci with possible contamination, will repeat blood culture. She continues on ceftriaxone 2 g daily. ID following. Today's labs significant for WBC 20.8, hemoglobin 11.4, bicarb 20.2, glucose 117. REVIEW OF SYSTEMS: Pertinent positives and negatives noted in HPI. PHYSICAL EXAMINATION: Vitals reviewed GENERAL: No acute distress. Well developed, well nourished. HEENT: Pupils are round and equally reacting to light. EOMI. No scleral icterus. CARDIOVASCULAR: S1 and S2 present. No murmurs, rubs, or gallops. PULMONARY: Chest is clear to auscultation, no wheezing, rhonchi, or crackles. ABDOMEN: Soft, nontender, nondistended, normoactive bowel sounds. No palpable organomegaly. MUSCULOSKELETAL: No apparent joint swelling and deformities. EXTREMITIES: No apparent cyanosis, clubbing, or pedal edema. NEUROLOGICAL: The patient is alert and oriented x3, Gross neurological examination did not reveal any focal deficits. SKIN: No apparent rashes. Assessment and plan Patient is 63-year-old female with history of nephrolithiasis presenting with right lower back pain. # Right sided nephrolithiasis with hydroureteronephrosis s/p right ureteral stent insertion #Possible Bacteremia, likely contamination #UTI Continue ketorolac IVP every 6 hours, and Dilaudid IVP every 3 hours, acetaminophen 500 mg every 4 hours as needed for pain Continue Zofran every 8 hours as needed for nausea and vomiting Continue ceftriaxone 2 g daily Blood culture with gram-positive cocci, will repeat. Urine culture no growth Urology following Infectious disease following #BEBE, likely due to above, resolved Initial BUN 22, creatinine 1.33 #Insomnia Continue home medications F: P.o. E: Replete as needed N: Regular diet DVT ppx: Subq Lovenox 40 meq daily Code status: Full code Anticipated discharge place: Home Anticipated discharge time: 1 to 2 days Dictation was produced using [employer] dictation software. Please excuse any grammatical, word or spelling errors. Attestation I have seen and examined this patient with my resident , discussed the same with the resident/BHAVANA, and agree with the dictator's assessment and plan as written Dr. Jeyson santana Objective - Vital Signs Vital signs: Vital Signs Temp 98.1 F 08/12/24 06:46 Pulse 60 08/12/24 06:46 Resp 16 08/12/24 06:46 BP 122/76 08/12/24 06:46 Pulse Ox 96 08/12/24 06:46 FiO2 Intake & Output 08/11/24 08/12/24 08/12/24 18:59 06:59 18:59 Intake Total 1500 1620 Balance 1500 1620 Weight 81.647 kg Intake: IV 1500 Oral 1620 Other: Voiding Method Toilet # Voids 3 5 - Labs CBC & Chem 7: 08/13/24 02:32 08/13/24 02:32 Labs: Abnormal Lab Results - Last 24 Hours (Table) 08/12/24 08/12/24 Range/Units 02:59 02:59 WBC 20.81 H (4.50-10.00) X 10*3/uL RBC 3.96 L (4.10-5.20) X 10*6/uL Hgb 11.4 L (12.0-15.0) g/dL Hct 36.2 L (37.2-46.3) % MCHC 31.5 L (32.0-37.0) g/dL Chloride 111 H (96-109) mmol/L Carbon Dioxide 20.2 L (21.6-31.8) mmol/L Glucose 117 H (70-110) mg/dL Calcium 8.2 L (8.7-10.3) mg/dL Microbiology - Last 24 Hours (Table) 08/10/24 19:20 Blood Culture Gram Stain - Preliminary Blood Blood Culture - Preliminary Molecular ID 08/10/24 15:27 Urine Culture - Final Urine,Voided
--- NOTE | 2024-08-12 17:26 | P.PN ---
Subjective Progress Note Date: 08/12/24 Underwent right-sided stent insertion with Dr. Moss yesterday. Pain has improved, she is afebrile. Urine culture showing contaminant, blood cultures growing gram-positive cocci. Infectious disease is on board Objective - Vital Signs Vital signs: Vital Signs Temp 98.4 F 08/12/24 13:12 Pulse 74 08/12/24 13:12 Resp 18 08/12/24 13:12 BP 144/82 08/12/24 13:12 Pulse Ox 97 08/12/24 13:12 FiO2 Intake & Output 08/11/24 08/12/24 08/12/24 18:59 06:59 18:59 Intake Total 1500 1620 Balance 1500 1620 Weight 81.647 kg Intake: IV 1500 Oral 1620 Other: Voiding Method Toilet # Voids 3 5 - Constitutional General appearance: Present: no acute distress - Gastrointestinal General gastrointestinal: Present: soft. Absent: distended, tenderness - Psychiatric Psychiatric: Present: A&O x's 3 - Labs CBC & Chem 7: 08/12/24 02:59 08/12/24 02:59 Labs: Abnormal Lab Results - Last 24 Hours (Table) 08/12/24 08/12/24 Range/Units 02:59 02:59 WBC 20.81 H (4.50-10.00) X 10*3/uL RBC 3.96 L (4.10-5.20) X 10*6/uL Hgb 11.4 L (12.0-15.0) g/dL Hct 36.2 L (37.2-46.3) % MCHC 31.5 L (32.0-37.0) g/dL Chloride 111 H (96-109) mmol/L Carbon Dioxide 20.2 L (21.6-31.8) mmol/L Glucose 117 H (70-110) mg/dL Calcium 8.2 L (8.7-10.3) mg/dL Microbiology - Last 24 Hours (Table) 08/10/24 19:20 Blood Culture Gram Stain - Preliminary Blood Blood Culture - Preliminary Molecular ID 08/10/24 15:27 Urine Culture - Final Urine,Voided Assessment and Plan Assessment: 63-year-old female with right sided distal ureteral stone, patient was septic on presentation, underwent stent insertion yesterday. Blood cultures growing gram- positive cocci, she has been afebrile for 24 hours. -From urology standpoint she can be discharged once cultures are finalized -She will be set up for right-sided ureteroscopy with holmium laser and stent removal as an outpatient with Dr. Moss
[2024-08-12] MEDS: ALBUTEROL NEBULIZED 2.5 MG/3 ML INHALATION PRN (18:10)
[2024-08-13 02:49] LABS: HCT 37.6 % (34.0-46.0); HGB 12.5 gm/dL (11.4-16.0); MCH 29.5 pg (25.0-35.0); MCHC 33.4 g/dL (31.0-37.0); MCV 88.4 fL (80.0-100.0); Mean Platelet Volume 7.4; Platelet Count 209 k/uL (150-450); RBC 4.25 m/uL (3.80-5.40); RDW 13.9 % (11.5-15.5); WBC 12.4 k/uL (3.8-10.6)
[2024-08-13 03:21] LABS: African American GFR (CKD) >90 (>60 ml/min/1.73 sqM); Anion Gap 5 mmol/L; Blood Urea Nitrogen 11 mg/dL (7-17); Calcium 8.6 mg/dL (8.4-10.2); Carbon Dioxide 20 mmol/L (22-30); Chloride 111 mmol/L (98-107); Glucose 93 mg/dL (74-99); Non-African American GFR(CKD) >90 (>60 ml/min/1.73 sqM); Potassium 3.7 mmol/L (3.5-5.1); Sodium 136 mmol/L (137-145)
--- NOTE | 2024-08-13 10:36 | P.PN ---
Subjective Progress Note Date: 08/13/24 Blood culture growing Staph aureus, denies any flank pain, is complaining of urinary urgency and frequency Objective - Vital Signs Vital signs: Vital Signs Temp 98.2 F 08/13/24 06:54 Pulse 61 08/13/24 06:54 Resp 16 08/13/24 06:54 BP 135/77 08/13/24 06:54 Pulse Ox 96 08/13/24 06:54 FiO2 Intake & Output 08/12/24 08/13/24 08/13/24 18:59 06:59 18:59 Intake Total 1886 Balance 1886 Intake: Oral 1886 Other: Voiding Method Toilet # Voids 1 5 4 - Constitutional General appearance: Present: no acute distress - Gastrointestinal General gastrointestinal: Absent: distended, tenderness - Psychiatric Psychiatric: Present: A&O x's 3 - Labs CBC & Chem 7: 08/13/24 02:32 08/13/24 02:32 Labs: Abnormal Lab Results - Last 24 Hours (Table) 08/13/24 08/13/24 Range/Units 02:32 02:32 WBC 12.4 H (3.8-10.6) k/uL Sodium 136 L (137-145) mmol/L Chloride 111 H (98-107) mmol/L Carbon Dioxide 20 L (22-30) mmol/L Microbiology - Last 24 Hours (Table) 08/10/24 19:20 Blood Culture Gram Stain - Preliminary Blood Blood Culture - Preliminary Presumptive Staph aureus Molecular ID Assessment and Plan Assessment: 63-year-old female with right sided distal ureteral stone, patient was septic on presentation, underwent stent insertion 08/11. Blood cultures growing Staph aureus she has been afebrile now, having discomfort from her stent. -From urology standpoint she can be discharged once cultures are finalized -Will start Ditropan for bladder spasm -She will be set up for right-sided ureteroscopy with holmium laser and stent removal as an outpatient with Dr. Moss
--- NOTE | 2024-08-13 14:20 | P.PN ---
Subjective Progress Note Date: 08/12/24 Principal diagnosis: Reason for follow-up is sepsis UTI and bacteremia Patient is 63-year-old female with a past medical history significant for asthma hyperlipidemia kidney stone presenting to the hospital for evaluation of right flank pain, patient be diagnosed with sepsis secondary to the complicated UTI did have right-sided hydronephrosis status post cystoscopy and right ureteral stent placement. On today's evaluation that is 08/12/2024, the patient did have resolution of her fever and is afebrile this morning, the patient is on room air and breathing comfortably, the Pt denies having any chest pain or cough, the patient denies having any abdominal pain no vomiting or any diarrhea, mention feeling better Patient white count is up to 20.81 creatinine 0.9 blood culture positive with MSSA Objective - Vital Signs Vital signs: Vital Signs Temp 98.4 F 08/12/24 13:12 Pulse 74 08/12/24 13:12 Resp 18 08/12/24 13:12 BP 144/82 08/12/24 13:12 Pulse Ox 97 08/12/24 13:12 FiO2 Intake & Output 08/11/24 08/12/24 08/12/24 18:59 06:59 18:59 Intake Total 1500 1620 Balance 1500 1620 Weight 81.647 kg Intake: IV 1500 Oral 1620 Other: Voiding Method Toilet # Voids 3 5 - Exam GENERAL DESCRIPTION: Middle-age female lying in bed in no distress RESPIRATORY SYSTEM: Unlabored breathing , decreased breath sounds at bases HEART: S1 S2 regular rate and rhythm , ABDOMEN: Soft , no tenderness EXTREMITIES: No edema feet - Labs CBC & Chem 7: 08/13/24 02:32 08/13/24 02:32 Labs: Abnormal Lab Results - Last 24 Hours (Table) 08/12/24 08/12/24 Range/Units 02:59 02:59 WBC 20.81 H (4.50-10.00) X 10*3/uL RBC 3.96 L (4.10-5.20) X 10*6/uL Hgb 11.4 L (12.0-15.0) g/dL Hct 36.2 L (37.2-46.3) % MCHC 31.5 L (32.0-37.0) g/dL Chloride 111 H (96-109) mmol/L Carbon Dioxide 20.2 L (21.6-31.8) mmol/L Glucose 117 H (70-110) mg/dL Calcium 8.2 L (8.7-10.3) mg/dL Microbiology - Last 24 Hours (Table) 08/10/24 19:20 Blood Culture Gram Stain - Preliminary Blood Blood Culture - Preliminary Molecular ID 08/10/24 15:27 Urine Culture - Final Urine,Voided Assessment and Plan (1) Complicated UTI (urinary tract infection) Current Visit: Yes Status: Acute Code(s): N39.0 - URINARY TRACT INFECTION, SITE NOT SPECIFIED SNOMED Code(s): 82737352 (2) 4-quinolones allergy Current Visit: Yes Status: Acute Code(s): Z88.1 - ALLERGY STATUS TO OTHER ANTIBIOTIC AGENTS SNOMED Code(s): 657646691 (3) Urinary tract infection Current Visit: No Status: Acute Code(s): N39.0 - URINARY TRACT INFECTION, SITE NOT SPECIFIED SNOMED Code(s): 16197163 (4) MSSA bacteremia Current Visit: Yes Status: Acute Code(s): R78.81 - BACTEREMIA; B95.61 - METHICILLIN SUSCEP STAPH INFCT CAUSING DIS CLASSD [id number] SNOMED Code(s): 604354559 Plan: 1patient presented to hospital with right flank pain nausea and vomiting in this patient who did have a complicated UTI with right-sided hydronephrosis requiring cystoscopy and right 20 stent placement will need to cover for the enteric gram-negative pathogen to be the likely etiology 2-patient did have MSSA bacteremia source is likely complicated UTI/pyelonephritis blood cultures repeated document clearance of bacteremia 3to discontinue Rocephin start the patient on cefazolin 2 g every 8 hours Dictation was produced using [employer] dictation software. please excuse any gramm atical, word or spelling errors. Time with Patient: Less than 30
--- NOTE | 2024-08-13 14:21 | P.PN ---
Subjective Progress Note Date: 08/13/24 Principal diagnosis: Reason for follow-up is sepsis UTI and bacteremia Patient is 63-year-old female with a past medical history significant for asthma hyperlipidemia kidney stone presenting to the hospital for evaluation of right flank pain, patient be diagnosed with sepsis secondary to the complicated UTI did have right-sided hydronephrosis status post cystoscopy and right ureteral stent placement. On today's evaluation that is 08/13/2024, patient did not have any fever and denies any chills, patient is breathing comfortably on room air, patient with no chest pain or cough, patient denies any worsening right flank pain, nausea vomiting or any loose stools, patient seen to be slightly upset for not able to go home today Patient white count is down to 12.4 creatinine 0.69 Objective - Vital Signs Vital signs: Vital Signs Temp 98.2 F 08/13/24 06:54 Pulse 61 08/13/24 06:54 Resp 16 08/13/24 06:54 BP 135/77 08/13/24 06:54 Pulse Ox 96 08/13/24 06:54 FiO2 Intake & Output 08/12/24 08/13/24 08/13/24 18:59 06:59 18:59 Intake Total 1887 Balance 1887 Intake: Oral 1887 Other: Voiding Method Toilet # Voids 1 5 4 - Exam GENERAL DESCRIPTION: Middle-age female lying in bed in no distress RESPIRATORY SYSTEM: Unlabored breathing , decreased breath sounds at bases HEART: S1 S2 regular rate and rhythm , ABDOMEN: Soft , no tenderness EXTREMITIES: No edema feet - Labs CBC & Chem 7: 08/13/24 02:32 08/13/24 02:32 Labs: Abnormal Lab Results - Last 24 Hours (Table) 08/13/24 08/13/24 Range/Units 02:32 02:32 WBC 12.4 H (3.8-10.6) k/uL Sodium 136 L (137-145) mmol/L Chloride 111 H (98-107) mmol/L Carbon Dioxide 20 L (22-30) mmol/L Microbiology - Last 24 Hours (Table) 08/10/24 19:20 Blood Culture Gram Stain - Preliminary Blood Blood Culture - Preliminary Presumptive Staph aureus Molecular ID Assessment and Plan (1) Complicated UTI (urinary tract infection) Current Visit: Yes Status: Acute Code(s): N39.0 - URINARY TRACT INFECTION, S ITE NOT SPECIFIED SNOMED Code(s): 03225784 (2) 4-quinolones allergy Current Visit: Yes Status: Acute Code(s): Z88.1 - ALLERGY STATUS TO OTHER ANTIBIOTIC AGENTS SNOMED Code(s): 498036414 (3) Urinary tract infection Current Visit: No Status: Acute Code(s): N39.0 - URINARY TRACT INFECTION, SITE NOT SPECIFIED SNOMED Code(s): 75118771 Plan: 1patient presented to hospital with right flank pain nausea and vomiting in this patient who did have a complicated UTI with right-sided hydronephrosis req uiring cystoscopy and right 20 stent placement will need to cover for the enteric gram-negative pathogen to be the likely etiology 2-patient did have MSSA bacteremia source is likely complicated UTI/p yelonephritis blood cultures has been repeated to document clearance of bacteremia 3patient will be treated with cefazolin 2 g every 8 hours, will need a midline when she cleared her bacteremia to finish her total of 2-week course of IV cefazolin Multiple question concern answered Dictation was produced using [employer] dictation software. please excuse any grammatical, word or spelling errors. Time with Patient: Less than 30
--- NOTE | 2024-08-13 15:03 | P.PN ---
Subjective Progress Note Date: 08/13/24 History of present illness; Patient is 63-year-old female with history of nephrolithiasis presenting with r ight lower back pain. Symptoms began 2 days ago, patient took Motrin which improved symptoms. Later her pain continued to progress and she had associated chills, lightheadedness, nausea and vomiting. At that time pain was radiating from right loin to groin, and she began having associated fever. Patient does attest to having similar presentation with nephrolithiasis 8 years ago. Currently patient is denying continued back pain, chest pain, nausea, vomiting since admission. She also denies chest pain, shortness of breath, fever, abdominal pain, dysuria. Labs performed in ER significant for WBC 7.6, BUN 22, creatinine 1.33, lactic acid 1.3, troponin negative, UA with leukocyte esterase large, and 41 WBC. EKG done in the ER independently interpreted showed sinus tachycardia with RBBB , heart rate of 100, no ST segment elevation or depression seen, no T-wave inversions seen. Abdomen soft pelvis CT significant for numerous obstructing distal right ureteral calculi measuring up to 7 mm causing moderate upstream hydroureteronephrosis, also numerous bilateral nonobstructing renal calculi. 08/12/2024 Patient seen and examined at bedside. No acute events overnight. She does endorse some mild intermittent abdominal pain. Blood culture positive for gram- positive cocci with possible contamination, will repeat blood culture. She continues on ceftriaxone 2 g daily. ID following. Today's labs significant for WBC 20.8, hemoglobin 11.4, bicarb 20.2, glucose 117. 08/13/2024atient seen and examined at bedside. No acute events overnight. No complaints of pain at this time. Awaiting repeat blood cultures for possible contaminant. She continues on ceftriaxone 2 g daily. Labs today WBC 12.4, sodium 136, bicarb 20, BUN 11, creatinine 0.69. REVIEW OF SYSTEMS: Pertinent positives and negatives noted in HPI. PHYSICAL EXAMINATION: Vitals reviewed GENERAL: No acute distress. Well developed, well nourished. HEENT: Pupils are round and equally reacting to light. EOMI. No scleral icterus. CARDIOVASCULAR: S1 and S2 present. No murmurs, rubs, or gallops. PULMONARY: Chest is clear to auscultation, no wheezing, rhonchi, or crackles. ABDOMEN: Soft, nontender, nondistended, normoactive bowel sounds. No palpable organomegaly. MUSCULOSKELETAL: No apparent joint swelling and deformities. EXTREMITIES: No apparent cyanosis, clubbing, or pedal edema. NEUROLOGICAL: The patient is alert and oriented x3, Gross neurological examination did not reveal any focal deficits. SKIN: No apparent rashes. Assessment and plan Patient is 63-year-old female with history of nephrolithiasis presenting with right lower back pain. # Right sided nephrolithiasis with hydroureteronephrosis s/p right ureteral stent insertion #Possible Bacteremia, likely contamination #UTI Continue ketorolac IVP every 6 hours, and Dilaudid IVP every 3 hours, acetaminophen 500 mg every 4 hours as needed for pain Continue Zofran every 8 hours as needed for nausea and vomiting Continue ceftriaxone 2 g daily Blood culture with gram-positive cocci, will repeat. Urine culture no growth Repeat blood cultures pending Urology following Infectious disease following #BEBE, likely due to above, resolved Initial BUN 22, creatinine 1.33 #Insomnia Continue home medications F: P.o. E: Replete as needed N: Regular diet DVT ppx: Subq Lovenox 40 meq daily Code status: Full code Anticipated discharge place: Home Anticipated discharge time: 1 to 2 days Dictation was produced using [employer] dictation software. Please excuse any gramm atical, word or spelling errors. I have seen and examined this patient with my resident , discussed the same with the resident/BHAVANA, and agree with the dictator's assessment and plan as written Dr. Jeyson santana Objective - Vital Signs Vital signs: Vital Signs Temp 98.2 F 08/13/24 13:35 Pulse 69 08/13/24 13:35 Resp 17 08/13/24 13:35 BP 123/82 08/13/24 13:35 Pulse Ox 95 08/13/24 13:35 FiO2 Intake & Output 08/12/24 08/13/24 08/13/24 18:59 06:59 18:59 Intake Total 1887 Balance 1887 Intake: Oral 7 Other: Voiding Method Toilet # Voids 1 5 4 - Labs CBC & Chem 7: 08/13/24 02:32 08/13/24 02:32 Labs: Abnormal Lab Results - Last 24 Hours (Table) 08/13/24 08/13/24 Range/Units 02:32 02:32 WBC 12.4 H (3.8-10.6) k/uL Sodium 136 L (137-145) mmol/L Chloride 111 H (98-107) mmol/L Carbon Dioxide 20 L (22-30) mmol/L Microbiology - Last 24 Hours (Table) 08/10/24 19:20 Blood Culture Gram Stain - Preliminary Blood Blood Culture - Preliminary Presumptive Staph aureus Molecular ID
[2024-08-14] MEDS: OXYBUTYNIN XL 5 MG TAB.ER.24 PO SCH (08:00)
[2024-08-14 09:50] LABS: HCT 46.4 % (37.2-46.3); HGB 14.6 g/dL (12.0-15.0); MCH 28.1 pg (27.0-32.0); MCHC 31.5 g/dL (32.0-37.0); MCV 89.4 FL (80.0-97.0); Mean Platelet Volume 9.8 FL (9.5-12.2); NRBC Per 100 WBC 0 X 10*3/uL (0.00-0.01); Platelet Count 293 X 10*3/uL (140-440); RBC 5.19 X 10*6/uL (4.10-5.20); WBC 9.65 X 10*3/uL (4.50-10.00)
[2024-08-14 10:03] LABS: BUN/Creat Ratio 18.57 Ratio (12.00-20.00); Calcium 8.9 mg/dL (8.7-10.3); Carbon Dioxide 22.3 mmol/L (21.6-31.8); Chloride 106 mmol/L (96-109); Glucose 102 mg/dL (70-110); Potassium 4.1 mmol/L (3.5-5.5); Sodium 138 mmol/L (135-145)
--- NOTE | 2024-08-14 10:12 | P.PN ---
Subjective Blood culture growing Staph aureus, denies any flank pain, denies any dysuria or gross hematuria Objective - Vital Signs Vital signs: Vital Signs Temp 98.4 F 08/14/24 07:08 Pulse 98 08/14/24 07:08 Resp 14 08/14/24 07:08 BP 105/72 08/14/24 07:08 Pulse Ox 92 L 08/14/24 07:08 FiO2 Intake & Output 08/13/24 08/14/24 08/14/24 18:59 06:59 18:59 Intake Total 1650 Balance 1650 Intake: Oral 1650 Other: Voiding Method Toilet # Voids 3 6 - Constitutional General appearance: Present: no acute distress - Gastrointestinal General gastrointestinal: Present: soft. Absent: distended, tenderness - Psychiatric Psychiatric: Present: A&O x's 3 - Labs CBC & Chem 7: 08/14/24 04:37 08/14/24 04:37 Labs: Abnormal Lab Results - Last 24 Hours (Table) 08/14/24 Range/Units 04:37 Hct 46.4 H (37.2-46.3) % MCHC 31.5 L (32.0-37.0) g/dL Microbiology - Last 24 Hours (Table) 08/12/24 13:19 Blood Culture - Preliminary Blood 08/12/24 13:15 Blood Culture - Preliminary Blood 08/10/24 19:20 Blood Culture Gram Stain - Preliminary Blood Blood Culture - Preliminary Presumptive Staph aureus Molecular ID Assessment and Plan Assessment: 63-year-old female with right sided distal ureteral stone, patient was septic on presentation, underwent stent insertion 08/11. Blood cultures growing Staph aureus she has been afebrile now, having discomfort from her stent. -From urology standpoint she can be discharged once cultures are finalized -Will discharge home with Ditropan for bladder spasms secondary to stent -She will be set up for right-sided ureteroscopy with holmium laser and stent removal as an outpatient with Dr. Moss
--- NOTE | 2024-08-14 14:51 | P.PN ---
Subjective Progress Note Date: 08/14/24 Principal diagnosis: Reason for follow-up is sepsis UTI and bacteremia Patient is 63-year-old female with a past medical history significant for asthma hyperlipidemia kidney stone presenting to the hospital for evaluation of right flank pain, patient be diagnosed with sepsis secondary to the complicated UTI did have right-sided hydronephrosis status post cystoscopy and right ureteral stent placement. On today's evaluation that is 08/14/2024, Patient is afebrile patient is currently on room air and denies having any shortness of breath, the patient denies any chest pain or cough, the patient denies any nausea vomiting did not have any abdominal pain and no diarrhea, feeling better no new symptoms. Patient white count normalized to 9.65 creatinine 0.7 blood culture repeat currently pending Objective - Vital Signs Vital signs: Vital Signs Temp 98.4 F 08/14/24 07:08 Pulse 98 08/14/24 07:08 Resp 14 08/14/24 07:08 BP 105/72 08/14/24 07:08 Pulse Ox 92 L 08/14/24 07:08 FiO2 Intake & Output 08/13/24 08/14/24 08/14/24 18:59 06:59 18:59 Intake Total 1650 Balance 1650 Intake: Oral 1650 Other: Voiding Method Toilet # Voids 3 6 - Exam GENERAL DESCRIPTION: Middle-age female lying in bed in no distress RESPIRATORY SYSTEM: Unlabored breathing , decreased breath sounds at bases HEART: S1 S2 regular rate and rhythm , ABDOMEN: Soft , no tenderness EXTREMITIES: No edema feet - Labs CBC & Chem 7: 08/14/24 04:37 08/14/24 04:37 Labs: Abnormal Lab Results - Last 24 Hours (Table) 08/14/24 Range/Units 04:37 Hct 46.4 H (37.2-46.3) % MCHC 31.5 L (32.0-37.0) g/dL Microbiology - Last 24 Hours (Table) 08/12/24 13:19 Blood Culture - Preliminary Blood 08/12/24 13:15 Blood Culture - Preliminary Blood 08/10/24 19:20 Blood Culture Gram Stain - Preliminary Blood Blood Culture - Preliminary Presumptive Staph aureus Molecular ID Assessment and Plan (1) Complicated UTI (urinary tract infection) Current Visit: Yes Status: Acute Code(s): N39.0 - URINARY TRACT INFECTION, SITE NOT SPECIFIED SNOMED Code(s): 77155368 (2) 4-quinolones allergy Current Visit: Yes Status: Acute Code(s): Z88.1 - ALLERGY STATUS TO OTHER ANTIBIOTIC AGENTS SNOMED Code(s): 292994160 (3) Urinary tract infection Current Visit: No Status: Acute Code(s): N39.0 - URINARY TRACT INFECTION, SITE NOT SPECIFIED SNOMED Code(s): 69949598 Plan: 1patient presented to hospital with right flank pain nausea and vomiting in this patient who did have a complicated UTI with right-sided hydronephrosis requiring cystoscopy and right 20 stent placement will need to cover for the enteric gram-negative pathogen to be the likely etiology 2-patient did have MSSA bacteremia source is likely complicated UTI/pyelonephritis blood cultures has been repeated to document clearance of bacteremia 3patient white count has normalized blood culture repeat currently pending if remains to be negative by tomorrow to get a midline and plan is for 12 days of IV cefazolin to finish a total of 2-week course of therapy. Multiple question concern answered Dictation was produced using [employer] dictation software. please excuse any grammatical, word or spelling errors. Time with Patient: Less than 30
--- NOTE | 2024-08-14 14:56 | P.PN ---
Subjective Progress Note Date: 08/14/24 History of present illness; Patient is 63-year-old female with history of nephrolithiasis presenting with r ight lower back pain. Symptoms began 2 days ago, patient took Motrin which improved symptoms. Later her pain continued to progress and she had associated chills, lightheadedness, nausea and vomiting. At that time pain was radiating from right loin to groin, and she began having associated fever. Patient does attest to having similar presentation with nephrolithiasis 8 years ago. Currently patient is denying continued back pain, chest pain, nausea, vomiting since admission. She also denies chest pain, shortness of breath, fever, abdominal pain, dysuria. Labs performed in ER significant for WBC 7.6, BUN 22, creatinine 1.33, lactic acid 1.3, troponin negative, UA with leukocyte esterase large, and 41 WBC. EKG done in the ER independently interpreted showed sinus tachycardia with RBBB , heart rate of 100, no ST segment elevation or depression seen, no T-wave inversions seen. Abdomen soft pelvis CT significant for numerous obstructing distal right ureteral calculi measuring up to 7 mm causing moderate upstream hydroureteronephrosis, also numerous bilateral nonobstructing renal calculi. 08/12/2024 Patient seen and examined at bedside. No acute events overnight. She does endorse some mild intermittent abdominal pain. Blood culture positive for gram- positive cocci with possible contamination, will repeat blood culture. She continues on ceftriaxone 2 g daily. ID following. Today's labs significant for WBC 20.8, hemoglobin 11.4, bicarb 20.2, glucose 117. 08/13/2024atient seen and examined at bedside. No acute events overnight. No complaints of pain at this time. Awaiting repeat blood cultures for possible contaminant. She continues on ceftriaxone 2 g daily. Labs today WBC 12.4, sodium 136, bicarb 20, BUN 11, creatinine 0.69. 08/14. Patient seen and examined. Vital signs stable. No acute issues overnight REVIEW OF SYSTEMS: Pertinent positives and negatives noted in HPI. PHYSICAL EXAMINATION: Vitals reviewed GENERAL: No acute distress. Well developed, well nourished. HEENT: Pupils are round and equally reacting to light. EOMI. No scleral icterus. CARDIOVASCULAR: S1 and S2 present. No murmurs, rubs, or gallops. PULMONARY: Chest is clear to auscultation, no wheezing, rhonchi, or crackles. ABDOMEN: Soft, nontender, nondistended, normoactive bowel sounds. No palpable organomegaly. MUSCULOSKELETAL: No apparent joint swelling and deformities. EXTREMITIES: No apparent cyanosis, clubbing, or pedal edema. NEUROLOGICAL: The patient is alert and oriented x3, Gross neurological examination did not reveal any focal deficits. SKIN: No apparent rashes. Assessment and plan Patient is 63-year-old female with history of nephrolithiasis presenting with right lower back pain. # Right sided nephrolithiasis with hydroureteronephrosis s/p right ureteral stent insertion # MSSA bacteremia #UTI Follow blood culture continue IV cefazolin ID following #BEBE, likely due to above, resolved Initial BUN 22, creatinine 1.33 #Insomnia Continue home medications Objective - Vital Signs Vital signs: Vital Signs Temp 97.7 F 08/14/24 12:37 Pulse 89 08/14/24 12:37 Resp 15 08/14/24 12:37 BP 134/85 08/14/24 12:37 Pulse Ox 95 08/14/24 12:37 FiO2 Intake & Output 08/13/24 08/14/24 08/14/24 18:59 06:59 18:59 Intake Total 1650 Balance 1650 Intake: Oral 1650 Other: Voiding Method Toilet # Voids 3 6 - Labs CBC & Chem 7: 08/14/24 04:37 08/14/24 04:37 Labs: Abnormal Lab Results - Last 24 Hours (Table) 08/14/24 Range/Units 04:37 Hct 46.4 H (37.2-46.3) % MCHC 31.5 L (32.0-37.0) g/dL Microbiology - Last 24 Hours (Table) 08/10/24 19:20 Blood Culture Gram Stain - Final Blood Blood Culture - Final Staphylococcus aureus Molecular ID 08/13/24 02:39 Blood Culture - Preliminary Blood 08/12/24 13:19 Blood Culture - Preliminary Blood 08/12/24 13:15 Blood Culture - Preliminary Blood
[2024-08-15 07:21] VITALS: BP 107/67; PULSE 80; RESP 14; TEMP 98.4
--- NOTE | 2024-08-15 08:45 | P.PN ---
Subjective Progress Note Date: 08/15/24 Principal diagnosis: Right hydronephrosis Patient is receiving IV antibiotics for staph sepsis. She denies dysuria, hematuria, and flank pain. Objective - Vital Signs Vital signs: Vital Signs Temp 98.4 F 08/15/24 07:21 Pulse 80 08/15/24 07:21 Resp 14 08/15/24 07:21 BP 107/67 08/15/24 07:21 Pulse Ox 96 08/15/24 07:21 FiO2 Intake & Output 08/14/24 08/15/24 08/15/24 18:59 06:59 18:59 Intake Total 1887 Balance 1887 Intake: Oral 7 Other: Voiding Method Toilet # Voids 4 5 - Constitutional General appearance: Present: average body habitus, cooperative, no acute distress - Psychiatric Psychiatric: Present: A&O x's 3 - Labs CBC & Chem 7: 08/14/24 04:37 08/14/24 04:37 Labs: Abnormal Lab Results - Last 24 Hours (Table) 08/14/24 Range/Units 04:37 Hct 46.4 H (37.2-46.3) % MCHC 31.5 L (32.0-37.0) g/dL Microbiology - Last 24 Hours (Table) 08/12/24 13:19 Blood Culture - Preliminary Blood 08/12/24 13:15 Blood Culture - Preliminary Blood 08/10/24 19:20 Blood Culture Gram Stain - Final Blood Blood Culture - Final Staphylococcus aureus Molecular ID 08/13/24 02:39 Blood Culture - Preliminary Blood Assessment and Plan (1) Hydronephrosis with renal and ureteral calculous obstruction Current Visit: Yes Status: Acute Code(s): N13.2 - HYDRONEPHROSIS WITH RENAL AND URETERAL CALCULOUS OBSTRUCTION SNOMED Code(s): 788571498 Plan: The patient has a ureteral stent in place and is urologically stable for discharge. She will go home on IV antibiotics. Arrangements have been made for her to undergo cystoscopy, right ureteral stent removal, right ureteroscopy with laser lithotripsy next week.
[2024-08-15 09:19] LABS: HCT 44.5 % (37.2-46.3); HGB 14.4 g/dL (12.0-15.0); MCH 28.4 pg (27.0-32.0); MCHC 32.4 g/dL (32.0-37.0); MCV 87.8 FL (80.0-97.0); Mean Platelet Volume 9.4 FL (9.5-12.2); NRBC Per 100 WBC 0 X 10*3/uL (0.00-0.01); Platelet Count 299 X 10*3/uL (140-440); RBC 5.07 X 10*6/uL (4.10-5.20)
[2024-08-15 09:44] LABS: BUN/Creat Ratio 21.71 Ratio (12.00-20.00); Blood Urea Nitrogen 15.2 mg/dL (9.0-27.0); Calcium 8.8 mg/dL (8.7-10.3); Carbon Dioxide 20.6 mmol/L (21.6-31.8); Chloride 107 mmol/L (96-109); Glucose 100 mg/dL (70-110); Potassium 4.2 mmol/L (3.5-5.5); Sodium 139 mmol/L (135-145)
--- NOTE | 2024-08-15 12:29 | CDI ---
Documentation Clarification Form Date: 08/15/2024 11:57:03 AM From: Tammy Herzog RN CCDS Phone: [phone] Admit Date: 08/10/2024 05:24:00 PM Patient Name: Enid Blanc Visit Number: [id number] Discharge Date: ATTENTION: The Clinical Documentation Specialists (CDI) and [facility] Coding Staff appreciate your assistance in clarifying documentation. Please respond to the clarification below the line at the bottom and electronically sign. The CDI & [facility] Coding staff will review the response and follow-up if needed. Please note: Queries are made part of the Legal Health Record. If you have any questions, please contact the author of this message via ITS. Doctor: Jeyson Palmer Reason for follow up is sepsis UTI and bacteremia. 08/12, ID note. Based on this information and the findings below, is there an additional diagnosis that is clinically appropriate for this patient? History/Risk Factors: 63 year old female presents to the ED with right lower back pain, chills, lightheadedness, nausea and vomiting. The patient had a fever associated with the other symptoms. Medical History: Nephrolithiasis, HLD and Asthma. 08/11, [place] Clinical Indicators: WBC: 08/10 7.6, 08/12 20.81 Lactic acid: 08/10 1.3; Blood cultures: 08/10: Staphylococcus aureus Vitals signs: 08/10 14:58 B/P 170/95, HR 69, Temp 99.8 F Oral, RR 24, SpO2 96% ra 08/10 17:21 Temp 101.8F Oral Urology note, 08/15: Patient is receiving IV antibiotics for staph sepsis Medicine note, 08/15: MSSA bacteremia Treatment: 08/10 0.9NS IV 130cc/hr ID Note, 08/14: patient be diagnosed with sepsis secondary to the complicated UTI did have right-sided hydronephrosis status post cystoscopy and right ureteral stent placement. Antibiotics: 08/10 Rocephin IVP x 1; 08/11 08/12 Ceftriaxone IVPB Q24H, 08/12 08/15 Cefazolin IVPB Q8H, IV Bolus: 08/10 0.9NS 1.5L IV Bolus; Is there an additional diagnosis that is clinically appropriate for this patient? [ x ] Sepsis, secondary to bacteremia POA [ ] Sepsis ruled out [ ] Other, please specify [ ] Unable to determine SIRS Criteria: 2 or more of the following may indicate SIRS Temperature < 96.8F (36C) or > 101.0F (38.3C) Heart Rate > 90 bpm Respiratory Rate > 20 breaths/min or PaCO2 < 32 mmHg White Blood Cell Count > 12,000 or < 4,000 cells/mm3 or > 10% bands (Template Last Reviewed: August 2022) BRENDA
--- NOTE | 2024-08-15 13:36 | P.DS ---
Providers Date of admission: 08/10/24 17:24 Expected date of discharge: 08/15/24 Attending physician: Jeyson Palmer MD Consults: 08/10/24 17:48 Consult Physician Stat Consulting Provider: Jamal Mcadams Consult Reason/Comments: Obstructing nephrolithiasis Do you want consulting provider notified?: Already Contacted 08/11/24 11:05 Consult Physician Routine Consulting Provider: Billy José Consult Reason/Comments: Obstructing kidney stone, UTI Do you want consulting provider notified?: Yes Primary care physician: Beth Godinez Hospital Course: Discharge diagnosis: Right sided nephrolithiasis with hydroureteronephrosis s/p right ureteral stent insertion MSSA bacteremia UTI BEBE, likely due to above, resolved Insomnia Hospital Course: Patient is 63-year-old female with history of nephrolithiasis presenting with right lower back pain. Symptoms began 2 days ago, patient took Motrin which improved symptoms. Later her pain continued to progress and she had associated chills, lightheadedness, nausea and vomiting. At that time pain was radiating from right loin to groin, and she began having associated fever. Patient does attest to having similar presentation with nephrolithiasis 8 years ago. Currently patient is denying continued back pain, chest pain, nausea, vomiting since admission. She also denies chest pain, shortness of breath, fever, abdominal pain, dysuria. Labs performed in ER significant for WBC 7.6, BUN 22, creatinine 1.33, lactic acid 1.3, troponin negative, UA with leukocyte esterase large, and 41 WBC. EKG done in the ER independently interpreted showed sinus tachycardia with RBBB, heart rate of 100, no ST segment elevation or depression seen, no T-wave inversions seen. Abdomen soft pelvis CT significant for numerous obstructing distal right ureteral calculi measuring up to 7 mm causing moderate upstream hydroureteronephrosis, also numerous bilateral nonobstructing renal calculi. 08/12/2024 Patient seen and examined at bedside. No acute events overnight. She does endorse some mild intermittent abdominal pain. Blood culture positive for gram- positive cocci with possible contamination, will repeat blood culture. She continues on ceftriaxone 2 g daily. ID following. Today's labs significant for WBC 20.8, hemoglobin 11.4, bicarb 20.2, glucose 117. 08/13/2024atient seen and examined at bedside. No acute events overnight. No complaints of pain at this time. Awaiting repeat blood cultures for possible contaminant. She continues on ceftriaxone 2 g daily. Labs today WBC 12.4, sodium 136, bicarb 20, BUN 11, creatinine 0.69. 08/14. Patient seen and examined. Vital signs stable. No acute issues overnight. 08/15/24: Patient evaluated bedside today. No acute events overnight. Vital signs stable. Patient feels better today. Labs today show hemoglobin 14.4, WBC 9.7, sodium 139, potassium 4.2, BUN 15.2, creatinine 0.7. Midline IV access today. Patient seen at bedside today and is feeling good and excited about discharge. Patient will be discharged today and is given a script for Oxybutynin 5 mg PO daily 30 tabs and cefazolin 2gm IVPB for 12 days. Patient is given a handout for kidney stones, bacteremia, midline catheter and is advised to be compliant with medications. Patient is advised to follow-up with PCP in 1-2 days and urology in 1 week. Vital signs are reviewed and stable General: nontoxic, no distress, appears at stated age Derm: warm, dry, intact Head: atraumatic, normocephalic, symmetric Eyes: EOMI, anicteric sclera Mouth: no lip lesion, mucus membranes moist Cardiovascular: S1 S2 reg, no murmur Lungs: CTA bilateral, no rhonchi, no rales, no accessory muscle use Abdominal: soft, non-tender to palpataion Extremities: No cyanosis, clubbing, or pedal edema. Neuro: Alert, Oriented, Gross neurological examination did not reveal any focal deficits. Psych: well appearing, appropriate affect A total of 30 minutes of time were spent preparing this complex discharge summary. Patient was discharged on 08/15/24 at 1200. Attestation I have seen and examined this patient with my resident , discussed the same with the resident/BHAVANA, and agree with the dictator's assessment and plan as written Dr. Jeyson palmer Patient Condition at Discharge: Stable Plan - Discharge Summary Discharge Rx Participant: No New Discharge Prescriptions: New Oxybutynin Xl [Ditropan XL] 5 mg PO DAILY #30 tab Continue Eszopiclone [Lunesta] 3 mg PO HS Discharge Medication List Eszopiclone [Lunesta] 3 mg PO HS 04/15/16 [History] Oxybutynin Xl [Ditropan XL] 5 mg PO DAILY #30 tab 08/13/24 [Rx] Follow up Appointment(s)/Referral(s): Mark Moss MD [STAFF PHYSICIAN] - 1 Week (Daughter will let you know) [facility] [NON-STAFF] - As Needed ([facility] will deliver IV antibiotics and supplies to your house this evening. ) [facility] [NON-STAFF] - 1-2 Days ([facility] will call you to schedule the time for your in home visits to begin IV antibiotic teaching. Your first visit will be tomorrow. ) Beth Godinez MD [Primary Care Provider] - 08/18/24 11:40 am Billy José MD [STAFF PHYSICIAN] - 08/24/24 2:00 pm Patient Instructions/Handouts: Kidney Stones (DC), Bacteremia (DC), Midline Catheter (DC) Discharge Disposition: HOME SELF-CARE
[2024-08-15] MEDS: DAPTOmycin 500 MG in SODIUM CHLORIDE 0.9% 50 ML IVPB SCH (14:32)
--- NOTE | 2024-08-17 14:55 | P.PN ---
Subjective Progress Note Date: 08/15/24 Principal diagnosis: Reason for follow-up is sepsis UTI and bacteremia Patient is 63-year-old female with a past medical history significant for asthma hyperlipidemia kidney stone presenting to the hospital for evaluation of right flank pain, patient be diagnosed with sepsis secondary to the complicated UTI did have right-sided hydronephrosis status post cystoscopy and right ureteral stent placement. On today's evaluation that is 08/15/2024, patient has been afebrile, patient is breathing comfortably and is currently on room air, patient denies having any significant cough no chest pain, patient denies nausea vomiting or diarrhea and no abdominal pain, feeling better wants to go home. Patient white count is 9.70, creatinine 0.7 blood culture repeat has been n egative Objective - Vital Signs Vital signs: Vital Signs Temp 98.4 F 08/15/24 07:21 Pulse 80 08/15/24 07:21 Resp 14 08/15/24 07:21 BP 107/67 08/15/24 07:21 Pulse Ox 96 08/15/24 07:21 FiO2 Intake & Output 08/14/24 08/15/24 08/15/24 18:59 06:59 18:59 Intake Total 1887 Balance 1887 Intake: Oral 1887 Other: Voiding Method Toilet Toilet # Voids 4 5 - Exam GENERAL DESCRIPTION: Middle-age female lying in bed in no distress RESPIRATORY SYSTEM: Unlabored breathing , decreased breath sounds at bases HEART: S1 S2 regular rate and rhythm , ABDOMEN: Soft , no tenderness EXTREMITIES: No edema feet - Labs CBC & Chem 7: 08/15/24 03:41 08/15/24 03:41 Labs: Abnormal Lab Results - Last 24 Hours (Table) 08/15/24 08/15/24 Range/Units 03:41 03:41 MPV 9.4 L (9.5-12.2) FL Carbon Dioxide 20.6 L (21.6-31.8) mmol/L BUN/Creatinine Ratio 21.71 H (12.00-20.00) Ratio Microbiology - Last 24 Hours (Table) 08/12/24 13:19 Blood Culture - Preliminary Blood 08/12/24 13:15 Blood Culture - Preliminary Blood 08/10/24 19:20 Blood Culture Gram Stain - Final Blood Blood Culture - Final Staphylococcus aureus Molecular ID 08/13/24 02:39 Blood Culture - Preliminary Blood Assessment and Plan (1) Complicated UTI (urinary tract infection) Status: Acute Code(s): N39.0 - URINARY TRACT INFECTION, SITE NOT SPECIFIED SNOMED Code(s): 72471426 (2) 4-quinolones allergy Status: Acute Code(s): Z88.1 - ALLERGY STATUS TO OTHER ANTIBIOTIC AGENTS SNOMED Code(s): 985989702 (3) Urinary tract infection Status: Acute Code(s): N39.0 - URINARY TRACT INFECTION, SITE NOT SPECIFIED SNOMED Code(s): 27359846 Plan: 1patient presented to hospital with right flank pain nausea and vomiting in this patient who did have a complicated UTI with right-sided hydronephrosis requiring cystoscopy and right 20 stent placement will need to cover for the enteric gram-negative pathogen to be the likely etiology 2-patient did have MSSA bacteremia source is likely complicated UTI/roberth lonephritis blood cultures has been repeated to document clearance of bacteremia 3patient white count has normalized blood culture repeat has been negative she did get a midline we will give her a dose of daptomycin today and she will resume her IV cefazolin tomorrow to finish a 2-week course of therapy and close outpatient follow-up Dictation was produced using [employer] dictation software. please excuse any grammatical, word or spelling errors. Time with Patient: Less than 30
== END 2024-08-15 15:52 | disposition home or self-care (01) | DRG 854 ==
LOC: EC 14:54 → 4SSUR 17:24
PROVIDERS: ADMIT Internal Medicine; ATTEND Internal Medicine
PROC: 0T768DZ Dilation of Right Ureter with Intraluminal Device, Via Natural or Artificial Opening Endoscopic (ICD-10-PCS; principal; 2024-08-11 07:30)
DX: A41.01 Sepsis due to Methicillin susceptible Staphylococcus aureus (principal); N13.6 Pyonephrosis; N17.9 Acute kidney failure, unspecified; G47.00 Insomnia, unspecified; E78.5 Hyperlipidemia, unspecified; E89.0 Postprocedural hypothyroidism; I45.10 Unspecified right bundle-branch block; J45.909 Unspecified asthma, uncomplicated; N32.89 Other specified disorders of bladder; Z87.442 Personal history of urinary calculi; Z79.899 Other long term (current) drug therapy; Z88.1 Allergy status to other antibiotic agents
CPT/HCPCS: 36410; 36415; 74176; 76937; 80048; 80053; 81001; 83605; 84484; 85025; 85027; 85610; 85730; 87040; 87077; 87086; 87186; 93005; 94640; 96361; 96374; 96375; 99285

== ENCOUNTER 2024-08-24 08:45 | Day surgery (SDC) | payer BC ==
--- NOTE | 2024-08-23 13:00 | P.GSHP ---
History of Present Illness H&P Date: 08/23/24 63-year-old female well known to our office for kidney stones. She recently was in the hospital with a urinary tract infection with sepsis, an obstructing right ureteral stone with pyelonephrosis. She has been treated appropriately with antibiotics and now comes for right ureteroscopy and laser lithotripsy to these multiple distal ureteral stones. - Constitutional Constitutional: Denies chills, Denies fever - EENT Eyes: denies blurred vision, denies pain Ears, nose, mouth and throat: Denies headache, Denies sore throat - Cardiovascular Cardiovascular: Denies chest pain, Denies shortness of breath - Respiratory Respiratory: Denies cough, Denies 7 - Gastrointestinal Gastrointestinal: Denies abdominal pain, Denies diarrhea, Denies nausea, Denies vomiting - Genitourinary (Female) Genitourinary: Denies dysuria, Denies hematuria - Genitourinary (Male) Genitourinary: Denies dysuria, Denies hematuria - Musculoskeletal Musculoskeletal: Denies myalgias - Integumentary Integumentary: Denies pruritus, Denies rash - Neurological Neurological: Denies numbness, Denies weakness - Psychiatric Psychiatric: Denies anxiety, Denies depression - Endocrine Endocrine: Denies fatigue, Denies weight change Past Medical History Past Medical History: Asthma, Thyroid Disorder Additional Past Medical History / Comment(s): Hx Asthma as a child, only has issues now if gets a cold. Recent sepsis on Rocephin. Hx of and current kidney stones. Migraines. Hx lump on thyroid, had partial thyroidectomy. History of Any Multi-Drug Resistant Organisms: ESBL Date of last positivie culture/infection: 07/06/16 MDRO Source:: urine kl. pneumo Past Surgical History: Cholecystectomy Additional Past Surgical History / Comment(s): Partial thyroidectomy, multiple procedures for kidney stones. Past Anesthesia/Blood Transfusion Reactions: No Reported Reaction Smoking Status: Never smoker - Past Family History Mother Family Medical History: Deep Vein Thrombosis (DVT) Additional Family Medical History / Comment(s): . Father Family Medical History: No Reported History Medications and Allergies Home Medications Medication Instructions Recorded Confirmed Type Eszopiclone [Lunesta] 3 mg PO HS 04/15/16 08/19/24 History Oxybutynin Xl [Ditropan XL] 5 mg PO DAILY #30 tab 08/13/24 08/19/24 Rx Rocephin (Unknown Dose) 1 dose IVPB TID 08/19/24 08/19/24 History Allergies Allergy/AdvReac Type Severity Reaction Status Date / Time ciprofloxacin [From Cipro] AdvReac Nausea & Verified 08/19/24 11:34 Vomiting ciprofloxacin HCl AdvReac Nausea & Verified 08/19/24 11:34 [From Cipro] Vomiting Results - Imaging CT scan - abdomen: report reviewed, image reviewed CT scan - pelvis: report reviewed, image reviewed Assessment and Plan Assessment: Impression: Status post stent placement for obstructing right ureteral stones with pyelonephrosis. Recommendations: The patient will undergo cystoscopy right ureteroscopy with laser lithotripsy
[~2024-08-24 08:45] MED LIST changes: -AMPICILLIN 1,000 MG in SODIUM CHLORIDE 0.9% 50 ML IVPB ONE; +AMPICILLIN 2,000 MG in SODIUM CHLORIDE 0.9% 100 ML IVPB PRN; -DEXAMETHASONE SOD PHOSPHATE 10 MG/ML 1 ML VIAL IV ONE; -GENTAMICIN 120 MG in SODIUM CHLORIDE 0.9% 100 ML IVPB ONE; +HYDROmorphone 0.5 MG/0.5 ML SYRINGE IVP PRN; +LIDOCAINE 1% (10MG/ML) FOR IV START INTRADERMA PRN; -MIDAZOLAM 2 MG/2 ML VIAL IV PRN; -ONDANSETRON 4 MG/2 ML VIAL IVP ONE
--- NOTE | 2024-08-24 09:07 | XR ---
EXAMINATION TYPE: XR KUB DATE OF EXAM: 08/24/2024 9:00 AM COMPARISON: 08/20/2023 CLINICAL INDICATION: Female, 63 years old with history of Right Ureteral Stone N20.1, presurgical mariely luation, FINDINGS: Right ureteral stent is present. Numerous bilateral renal calculi, right greater than left. Largest a ggregate on the right measures up to 1.3 cm on the right. Numerous bilateral pelvic phleboliths are n oted. Suspect a string of distal right ureteral stones measuring up to 4 mm. Cholecystectomy clips. A few additional surgical clips in the left upper pelvis. Mild stool burden. IMPRESSION: 1. Extensive bilateral nephrolithiasis, largest aggregate measuring up to 1.3 cm. Right ureteral sten t in place. 2. In addition to numerous pelvic phleboliths, suspect a string of approximately 3 distal right urete ral stones measuring up to 4 mm. [facility], Workstation: [id number], 08/24/2024 9:05 AM
[2024-08-24] MEDS: SODIUM CHLORIDE 0.9% 1,000 ML IV ONE (09:49)
[2024-08-24] MEDS: ONDANSETRON 4 MG/2 ML VIAL IVP ONE (09:51)
[2024-08-24] MEDS: DEXAMETHASONE SOD PHOSPHATE 4 MG/ML 1 ML VIAL IV ONE (09:51)
[2024-08-24] MEDS ORDERED: LIDOCAINE 1% INJ 10MG/ML (20 ML MDV) ONE (10:47)
[2024-08-24] MEDS ORDERED: PROPOFOL 10 MG/ML 20 ML VIAL IV ONE (10:47)
[2024-08-24] MEDS ORDERED: GLYCOPYRROLATE 0.2 MG/ML 2 ML VIAL ONE (10:47)
[2024-08-24] MEDS ORDERED: PHENYLEPHRINE-0.9% NACL SYG 1,000 MCG/10 ML SYRINGE ONE (10:47)
[2024-08-24] MEDS ORDERED: ePHEDrine 50 MG/ML 1 ML VIAL ONE (10:47)
[2024-08-24] MEDS ORDERED: MIDAZOLAM 2 MG/2 ML VIAL ONE (10:47)
[2024-08-24] MEDS ORDERED: fentaNYL (PF) 50 MCG/ML 2 ML AMP ONE (10:47)
[2024-08-24] MEDS: GENTAMICIN 100 MG in SODIUM CHLORIDE 0.9% 100 ML IVPB PRN (10:52)
--- NOTE | 2024-08-24 11:40 | P.OP ---
Date of Procedure: 08/24/24 Preoperative Diagnosis: Right ureteral calculi Postoperative Diagnosis: Same Procedure(s) Performed: Cystoscopy with right ureteroscopy laser lithotripsy stone basketing, removal of double-J catheter right Anesthesia: ELISA Surgeon: Ramin Muñoz Estimated Blood Loss (ml): 0 Pathology: other (Stone) Condition: stable Disposition: PACU Indications for Procedure: The patient is 63. She is recently in the hospital with obstructing distal right ureteral stones and secondary pyelonephrosis associated with urinary tract infection with sepsis. She was treated with a stent and antibiotic she now comes for stone and stent removal Description of Procedure: Patient brought to the operating suite. Given a general anesthetic. Placed in lithotomy position and a sterile prep and drape. Cystoscopy for bowel cleanse and 21 Czech sheath identifies a normal urethra. The bladder wall is unremarkable. The right ureteral orifice is identified and the stent is pulled to the urethral meatus. An 035 wire was passed through the stent up into the kidney. Alongside the wire I passed a 7 Czech semirigid scope up into the distal ureter. Multiple stones are seen. With the 272 m laser probe and 8 W of energy the stones are broken into tiny fragments the largest of which are stone basketed. I then passed the scope all the way up to the UPJ and see no more remaining stones pullout ureteroscopy does not identify any stones. The bladder is drained of stones. The ureteral wire in the right urine is removed. The bladder is drained the patient is awakened and returned to recovery in good condition. She tolerated the procedure well be discharged home upon recovery.
[2024-08-24 11:42] VITALS: TEMP 97.4
[2024-08-24 11:53] VITALS: RESP 16
[2024-08-24 12:34] VITALS: BP 130/78; PULSE 91
--- NOTE | 2024-08-24 13:32 | FL ---
EXAMINATION TYPE: FL guidance operating room DATE OF EXAM: 08/24/2024 FLUOROSCOPY right cysto in or with dr. Muñoz. Pt with flank pain. Right ureteral stone removed. Fl time 2.1 secs dap [id number] 3 images are submitted. [facility], Workstation: [email or web address], 08/24/2024 1:29 PM
== END 2024-08-24 13:02 | disposition home or self-care (01) ==
LOC: OR 08:45
PROVIDERS: ATTEND Urology
DX: N20.2 Calculus of kidney with calculus of ureter (principal); E07.9 Disorder of thyroid, unspecified; J45.909 Unspecified asthma, uncomplicated; Z87.440 Personal history of urinary (tract) infections; Z90.49 Acquired absence of other specified parts of digestive tract; Z88.1 Allergy status to other antibiotic agents; Z79.899 Other long term (current) drug therapy
CPT/HCPCS: 82365; 74018; 52356; C1769; J2250; J1100; J2405; J2003; J3010; J1580; J2704; J2371; J1596

== ENCOUNTER 2024-09-14 07:06 | Day surgery (SDC) | payer BC ==
--- NOTE | 2024-09-13 11:06 | P.GSHP ---
History of Present Illness H&P Date: 09/13/24 63-year-old female known to me for active kidney stone disease. She recently had an infected stone and required a stent and eventual stone and stent removal. She has multiple stones in the upper pole of the right kidney greater than 2 cm. She also has a smaller volume in the left upper pole of the kidney. Because of the large volume of stone in her right kidney patient would require a right percutaneous nephrostolithotomy. This was discussed with the patient as far as treating the stones. She wishes to have something done thus we will proceed with this. The risks and complications including infection bleeding pain injury to the kidney sepsis failure to remove all the stones have been explained understood and accepted. - Constitutional Constitutional: Denies chills, Denies fever - EENT Eyes: denies blurred vision, denies pain Ears, nose, mouth and throat: Denies headache, Denies sore throat - Cardiovascular Cardiovascular: Denies chest pain, Denies shortness of breath - Respiratory Respiratory: Denies cough, Denies 7 - Gastrointestinal Gastrointestinal: Denies abdominal pain, Denies diarrhea, Denies nausea, Denies vomiting - Genitourinary (Female) Genitourinary: Denies dysuria, Denies hematuria - Genitourinary (Male) Genitourinary: Denies dysuria, Denies hematuria - Musculoskeletal Musculoskeletal: Denies myalgias - Integumentary Integumentary: Denies pruritus, Denies rash - Neurological Neurological: Denies numbness, Denies weakness - Psychiatric Psychiatric: Denies anxiety, Denies depression - Endocrine Endocrine: Denies fatigue, Denies weight change Past Medical History Past Medical History: Asthma, Thyroid Disorder Additional Past Medical History / Comment(s): Hx Asthma as a child, only has issues now if gets a cold. Recent sepsis/kidney stone. Hx of and current kidney stones. Migraines. Hx nodule on thyroid, had partial thyroidectomy. History of Any Multi-Drug Resistant Organisms: ESBL Date of last positivie culture/infection: 07/06/16 MDRO Source:: urine kl. pneumo Past Surgical History: Cholecystectomy Additional Past Surgical History / Comment(s): Partial thyroidectomy, multiple procedures for kidney stones. Past Anesthesia/Blood Transfusion Reactions: No Reported Reaction Smoking Status: Never smoker - Past Family History Mother Family Medical History: Deep Vein Thrombosis (DVT) Additional Family Medical History / Comment(s): . Father Family Medical History: No Reported History Medications and Allergies Home Medications Medication Instructions Recorded Confirmed Type Eszopiclone [Lunesta] 3 mg PO HS 04/15/16 09/08/24 History Allergies Allergy/AdvReac Type Severity Reaction Status Date / Time ciprofloxacin [From Cipro] AdvReac Nausea & Verified 08/19/24 11:34 Vomiting ciprofloxacin HCl AdvReac Nausea & Verified 08/19/24 11:34 [From Cipro] Vomiting Surgical - Exam - General well developed, well nourished, no distress - Eyes normal ocular movement, no icteric - ENT no hearing loss, no congestion - Neck no masses, trachea midline - Respiratory normal respiratory effort, clear to auscultation - Abdomen Abdomen: soft, non tender, no guarding, no rigid, no rebound - Integumentary no rash, no abnormal pigmentation - Neurologic no disoriented, no combative - Psychiatric oriented to time, oriented to person, oriented to place, speech is normal, memory intact Results - Imaging Abdominal x-ray: report reviewed, image reviewed CT scan - abdomen: report reviewed, image reviewed CT scan - pelvis: report reviewed, image reviewed Assessment and Plan Assessment: Impression: Right renal stones, large greater than 2 cm Recommendations: Right percutaneous nephrostolithotomy
[~2024-09-14 07:06] MED LIST changes: -AMPICILLIN 2,000 MG in SODIUM CHLORIDE 0.9% 100 ML IVPB PRN; -LACTATED RINGERS 1,000 ML IV SCH; +MIDAZOLAM 2 MG/2 ML VIAL IV PRN; +fentaNYL (PF) 50 MCG/ML 2 ML AMP IV PRN
--- NOTE | 2024-09-14 07:25 | XR ---
EXAMINATION TYPE: XR KUB DATE OF EXAM: 09/14/2024 COMPARISON: KUB radiograph 08/24/2024, CT abdomen and pelvis 08/10/2024 HISTORY: N20.0 renal stone TECHNIQUE: Single supine KUB image of the abdomen is obtained FINDINGS: Small bowel demonstrates no evidence for dilatation or air fluid levels. Gas and fecal material is seen in non-distended colon. Mild colonic stool rim. Most prominent within the right colon. No convincing evidence for pneumoperitoneum. Interval removal of right ureteral stent from prior exam. Numerous bilateral renal calculi identified . Largest measuring 1.2 cm has shifted into the region of the right renal pelvis. Multiple pelvic phleboliths redemonstrated. Difficult to exclude ureteral calculi at the UVJ due to n umerable pelvic phleboliths. Cholecystectomy clips with additional surgical clips within the left upper pelvis redemonstrated. The osseous structures are intact. IMPRESSION: 1. Numerous bilateral renal calculi with shift of a 1.2 cm right renal calculus into the renal pelvi s. 2. Numerous pelvic phleboliths which limits evaluation for ureteral calculi at the UVJ. [facility], , 09/14/2024 7:23 AM
[2024-09-14] MEDS: IV FLUID CONTINUATION 1,000 ML IV ONE (07:40)
[2024-09-14] MEDS: LACTATED RINGERS 1,000 ML IV SCH (08:10)
[2024-09-14] MEDS: ONDANSETRON 4 MG/2 ML VIAL IVP STA (08:20)
[2024-09-14] MEDS: DEXAMETHASONE SOD PHOSPHATE 4 MG/ML 1 ML VIAL IVP STA (08:20)
[2024-09-14] MEDS ORDERED: MIDAZOLAM 2 MG/2 ML VIAL ONE (08:42)
[2024-09-14] MEDS ORDERED: WATER FOR INJECTION, STERILE 10 ML VIAL IV ONE (08:42)
[2024-09-14] MEDS ORDERED: PROPOFOL 10 MG/ML 20 ML VIAL IV ONE (08:42)
[2024-09-14] MEDS ORDERED: HYDROmorphone (PF) 1 MG/ML ONE (08:42)
[2024-09-14] MEDS ORDERED: fentaNYL (PF) 50 MCG/ML 2 ML AMP ONE (08:42)
[2024-09-14] MEDS ORDERED: SUCCINYLCHOLINE CHLORIDE 200 MG/10 ML VIAL IV ONE (08:42)
[2024-09-14] MEDS ORDERED: PHENYLEPHRINE-0.9% NACL SYG 1,000 MCG/10 ML SYRINGE ONE (08:42)
[2024-09-14] MEDS ORDERED: LIDOCAINE 1% INJ 10MG/ML (20 ML MDV) ONE (08:42)
[2024-09-14] MEDS ORDERED: GLYCOPYRROLATE 0.2 MG/ML 2 ML VIAL ONE (08:42)
[2024-09-14] MEDS ORDERED: ePHEDrine 50 MG/ML 1 ML VIAL ONE (08:42)
[2024-09-14] MEDS: GENTAMICIN 100 MG in SODIUM CHLORIDE 0.9% 100 ML IVPB PRN (08:50)
[2024-09-14] MEDS: AMPICILLIN 1,000 MG in SODIUM CHLORIDE 0.9% 50 ML IVPB PRN (08:50)
[2024-09-14] MEDS: IOPAMIDOL-370 100ML BTL MISCELLANE ONE ×2 (09:08)
[2024-09-14] MEDS: LACTATED RINGERS 1,000 ML IV ONE (09:38)
[2024-09-14] MEDS ORDERED: MAG HYDROX/AL HYDROX/SIMETH 30 ML CUP PO PRN (10:50)
[2024-09-14] MEDS ORDERED: ONDANSETRON 4 MG/2 ML VIAL IVP PRN (10:50)
[2024-09-14] MEDS ORDERED: HYDROmorphone PCA 10 MG/50 ML BAG IV PRN (10:52)
[2024-09-14] MEDS ORDERED: NALOXONE 0.4 MG/ML 1 ML VIAL IV PRN (10:52)
--- NOTE | 2024-09-14 10:56 | FL ---
Intraoperative/procedural fluoroscopic services were provided for right percutaneous nephrostomy. Tot al fluoroscopy time is 3.48 minutes with a total of 1 submitted image to PACS. Total DAP 2.00 Gycm2. Please see the operative note for further details. [facility], , 09/14/2024 10:53 AM
--- NOTE | 2024-09-14 10:57 | P.OP ---
Date of Procedure: 09/14/24 Preoperative Diagnosis: Right renal calculi, large greater than 2 cm Postoperative Diagnosis: Same, multiple renal tubular stones Procedure(s) Performed: Cystoscopy, placement of occluding balloon catheter right, percutaneous nephrostomy, percutaneous nephrostolithotomy right with laser lithotripsy, placement of 20 Djib[place]ian reentry nephrostomy tube Anesthesia: ELISA Surgeon: Ramin Muñoz Estimated Blood Loss (ml): 300 Pathology: other Condition: stable (Bone) Disposition: PACU Indications for Procedure: The patient is 63. She has medullary sponge kidney, active urolithiasis, renal tubular as well as renal calyceal stones. She has multiple upper pole renal stones as well as renal tubular stones. There is a large renal pelvic stone. All the stones are well greater than 2 cm. We discussed treatment options. She comes for percutaneous nephrostolithotomy as she has a tendency to have recurrent infections when she passes a ureteral stone with secondary pyelonephrosis. Description of Procedure: Patient brought to the operating suite. She was given a general anesthetic. On the transport gurney she is placed in a frog position with a sterile prep and drape. Cystoscopy identifies a normal bladder. The right ureteral orifice is identified and intubated with a 5 Djib[place]ian occluding balloon catheter passed up into the renal pelvis. It is secured to a 16 [place]ian Langston. The patient is placed in a prone position with care Adi and extremities on the operating table. A sterile prep and drape was administered. I performed percutaneous access to the right lower pole calyx which will be dictated separately. I dilate the tract to 30 [place]ib[place]ian. I then passed the rigid scope into the collecting system and remove any clot. There is a lot of small stony debris that is removed. Otherwise the renal pelvis is unremarkable. The collecting system was very friable as is the renal pelvis and oozes. I passed the flexible nephroscope after doing an intraoperative nephrostogram up into the upper pole calyx. Multiple stones are seen in the upper pole calyx. These are stood with laser lithotripsy. They are obviously tubular stones. I am able to incise the renal papilla in a couple different places and remove some more stone. I move into a second upper pole calyx and then I move into a midpole calyx and do the same thing. There is a large renal pelvic stone approximately 2 cm. It is broken into smaller pieces and the largest of which are grasped and removed from the renal pelvis. The lower pole calyx has slowly renal tubular stones. At the procedure look down the ureter there is no remaining stone. A 20 Djiboutian reentry nephrostomy tube was placed over the working wire. It is secured to the skin. The patient is awakened and returned to recovery in good condition. She tolerated the procedure well. Blood loss was approximately 300 mL.
--- NOTE | 2024-09-14 11:01 | P.PCN ---
Date of Procedure: 09/14/24 Preoperative Diagnosis: Right renal stones, large, greater than 2 cm Postoperative Diagnosis: Same Procedure(s) Performed: Percutaneous nephrostomy tube access right, lower pole Anesthesia: JONASA Surgeon: Ramin Muñoz Indications for Procedure: The patient has a large volume of right upper and middle pole calyceal stones as well as a renal pelvic stone, greater than 2 cm. She comes for percutaneous nephrostolithotomy right. I will perform percutaneous access. Description of Procedure: The patient has previously been anesthetized and occluding balloon catheters been placed. She is in a prone position with the care Adi and extremities are flank is prepped and draped. I injected air through right ureteral catheter to outline the collecting system. Posterior middle and lower pole calyces identified. I prefer the middle pole but due to a rib I am unable to access this. At this debate the posterior right pole calyx. This is done with a Chiba needle. I then advanced a [place] mandrel wire through the Chiba needle into the collecting system down towards the UPJ. I remove the Chiba needle and over this is passed a 6 Beninese dilating catheter. I then remove the inner catheter and passed an 035 wire into the collecting system but I am unable to get this to go down the ureter. I then over the working wire passed a 6 Beninese Kumpe catheter in order to direct the wire down the ureter which is then done. Izquierdo a Kumpe catheter into the ureter and remove the wire and then passed a Super Stiff wire down the ureter. Over the Super Stiff wire I then advanced the 8 and 10 dilating catheters down the right ureter. The aid is removed and I passed a safety wire through the 10 Beninese catheter. Over the working wire I then dilate the tract to the right lower pole calyx and advanced a 30 Beninese sheath into the collecting system.
[2024-09-14] MEDS: SODIUM CHLORIDE 0.9% 1,000 ML IV ONE (12:28)
[2024-09-14] MEDS: DEXTROSE 5%-0.45% NACL 1,000 ML IV SCH (13:14)
[2024-09-14] MEDS: SULFAMETHOX-TMP 800-160MG 1 EACH TAB PO SCH (21:36)
[2024-09-14] MEDS: TEMAZEPAM 15 MG CAP PO SCH (21:36)
[2024-09-14] MEDS: ACETAMINOPHEN TAB 325 MG TAB PO PRN (23:20)
[2024-09-14] MEDS: HYDROcodone/APAP 5-325MG 1 EACH TAB PO PRN (23:39)
[2024-09-15] MEDS: KETOROLAC 15 MG/ML 1 ML VIAL IVP PRN (01:09)
--- NOTE | 2024-09-15 08:00 | P.DS ---
Providers Date of admission: 09/14/24 Attending physician: Ramin Muñoz Primary care physician: [facility] Course: The patient was admitted 09/14/2024 for a right percutaneous nephrostolithotomy. She underwent this without problems. Postoperatively other than some discomfort she has done well. We have settled on Toradol to control her pain. Her pain is gone this morning. The urine is clearing. The Langston catheter and IV will be removed. She will ambulate and eat a regular diet. If she tolerates that she will be discharged home. She will follow-up in the office on Thursday for nephrostomy tube removal. Her prescriptions on discharge are Toradol and Bactrim. Her postoperative instructions have been given. Condition is good. Patient Condition at Discharge: Good Plan - Discharge Summary Discharge Rx Participant: Yes New Discharge Prescriptions: No Action Eszopiclone [Lunesta] 3 mg PO HS Discharge Medication List Eszopiclone [Lunesta] 3 mg PO HS 04/15/16 [History] Follow up Appointment(s)/Referral(s): Ramin Muñoz MD [STAFF PHYSICIAN] - 09/19/24 (home with nephrostomy tube.) Discharge Disposition: HOME SELF-CARE
[2024-09-15 11:54] VITALS: BP 122/73; PULSE 82; RESP 16; TEMP 99.8
== END 2024-09-15 16:11 | disposition home or self-care (01) ==
LOC: OR 07:06 → 5NMEDONC 10:44 → OR 09-15 16:11
PROVIDERS: ATTEND Urology
DX: N20.2 Calculus of kidney with calculus of ureter (principal); J45.909 Unspecified asthma, uncomplicated; E07.9 Disorder of thyroid, unspecified; Z88.1 Allergy status to other antibiotic agents; Z90.49 Acquired absence of other specified parts of digestive tract; Z79.899 Other long term (current) drug therapy
CPT/HCPCS: 82365; 50432; 74018; 50081; 52005; C1769 ×2; C2628; C1894; J2250; J0330; J1100; J2405; J2003; J3010; J1580; J0290; J1171; J1885; J2704; Q9967; J2371; J1596

== ENCOUNTER 2024-10-12 07:49 | Day surgery (SDC) | payer BC ==
--- NOTE | 2024-10-11 13:09 | P.GSHP ---
History of Present Illness H&P Date: 10/11/24 3-year-old female with active calcium oxalate urolithiasis. She recently had a percutaneous nephrostolithotomy on the right. She has multiple left calyceal stones and comes for left ureteroscopy and laser lithotripsy with probable stent placement. Alternatives have been discussed. - Constitutional Constitutional: Denies chills, Denies fever - EENT Eyes: denies blurred vision, denies pain Ears, nose, mouth and throat: Denies headache, Denies sore throat - Cardiovascular Cardiovascular: Denies chest pain, Denies shortness of breath - Respiratory Respiratory: Denies cough, Denies 7 - Gastrointestinal Gastrointestinal: Denies abdominal pain, Denies diarrhea, Denies nausea, Denies vomiting - Genitourinary (Female) Genitourinary: Denies dysuria, Denies hematuria - Genitourinary (Male) Genitourinary: Denies dysuria, Denies hematuria - Musculoskeletal Musculoskeletal: Denies myalgias - Integumentary Integumentary: Denies pruritus, Denies rash - Neurological Neurological: Denies numbness, Denies weakness - Psychiatric Psychiatric: Denies anxiety, Denies depression - Endocrine Endocrine: Denies fatigue, Denies weight change Past Medical History Past Medical History: Asthma, Thyroid Disorder Additional Past Medical History / Comment(s): Hx Asthma as a child, only has issues now if gets a cold. Recent sepsis/kidney stone. Hx of and current kidney stones. Migraines. Hx nodule on thyroid, had partial thyroidectomy. History of Any Multi-Drug Resistant Organisms: ESBL Date of last positivie culture/infection: 07/06/16 MDRO Source:: urine kl. pneumo Past Surgical History: Cholecystectomy Additional Past Surgical History / Comment(s): Partial thyroidectomy, multiple procedures for kidney stones. Past Anesthesia/Blood Transfusion Reactions: No Reported Reaction Smoking Status: Never smoker - Past Family History Mother Family Medical History: Deep Vein Thrombosis (DVT) Additional Family Medical History / Comment(s): . Father Family Medical History: No Reported History Medications and Allergies Home Medications Medication Instructions Recorded Confirmed Type Eszopiclone [Lunesta] 3 mg PO HS 04/15/16 10/11/24 History Allergies Allergy/AdvReac Type Severity Reaction Status Date / Time ciprofloxacin [From Cipro] AdvReac Nausea & Verified 10/11/24 09:33 Vomiting ciprofloxacin HCl AdvReac Nausea & Verified 10/11/24 09:33 [From Cipro] Vomiting Results - Imaging CT scan - abdomen: report reviewed, image reviewed CT scan - pelvis: report reviewed, image reviewed Assessment and Plan Assessment: Impression: Left renal calculi Recommendations: Left ureteroscopy laser lithotripsy and possible stent placement
[~2024-10-12 07:49] MED LIST changes: +AMPICILLIN 1,000 MG in SODIUM CHLORIDE 0.9% 50 ML IVPB PRN; -LIDOCAINE 1% (10MG/ML) FOR IV START INTRADERMA PRN; -MIDAZOLAM 2 MG/2 ML VIAL IV PRN; -fentaNYL (PF) 50 MCG/ML 2 ML AMP IV PRN
--- NOTE | 2024-10-12 08:25 | XR ---
EXAMINATION TYPE: XR KUB DATE OF EXAM: 10/12/2024 8:02 AM CLINICAL HISTORY: Kidney stones TECHNIQUE: Single supine KUB image of the abdomen is obtained. COMPARISON: Prior abdominal x-ray September 14, 2024. FINDINGS: Persistent multiple bilateral renal calculi with interval clearance of the dominant central 11 mm right renal calculus.. Multiple calcifications in the pelvis favor phleboliths are redemonstra karissa. Cholecystectomy clips are again seen. Overall nonobstructive bowel gas pattern. Additional surgical c lips overlie the upper pelvis. Osseous structures are intact. IMPRESSION: As above. [facility], , 10/12/2024 8:22 AM
[2024-10-12] MEDS: DEXAMETHASONE SOD PHOSPHATE 4 MG/ML 1 ML VIAL IV ONE ×2 (08:28)
[2024-10-12] MEDS: ONDANSETRON 4 MG/2 ML VIAL IVP STA (08:28)
[2024-10-12] MEDS: LACTATED RINGERS 1,000 ML IV SCH (08:28)
[2024-10-12 08:40] VITALS: RESP 16
[2024-10-12] MEDS: IV FLUID CONTINUATION 1,000 ML IV ONE (08:40)
[2024-10-12 08:45] LABS: Basophils # (A) 0.1 k/uL (0-0.2); Basophils % (A) 1 %; Eosinophils # (A) 0.3 k/uL (0-0.7); Eosinophils % (A) 4 %; HCT 45.4 % (34.0-46.0); HGB 14.1 gm/dL (11.4-16.0); Lymphocytes # (A) 2.6 k/uL (1.0-4.8); Lymphocytes % (A) 38 %; MCH 28.3 pg (25.0-35.0); MCHC 31.1 g/dL (31.0-37.0); MCV 90.9 fL (80.0-100.0); Mean Platelet Volume 6.6; Monocytes # (A) 0.6 k/uL (0-1.0); Monocytes % (A) 8 %; Neutrophils # (A) 3.2 k/uL (1.3-7.7); Neutrophils % (A) 47 %; Platelet Count 283 k/uL (150-450); RDW 13.5 % (11.5-15.5); WBC 6.8 k/uL (3.8-10.6)
[2024-10-12] MEDS ORDERED: fentaNYL (PF) 50 MCG/ML 2 ML AMP ONE (09:27)
[2024-10-12] MEDS ORDERED: ePHEDrine 50 MG/ML 1 ML VIAL ONE (09:27)
[2024-10-12] MEDS ORDERED: PHENYLEPHRINE-0.9% NACL SYG 1,000 MCG/10 ML SYRINGE ONE (09:27)
[2024-10-12] MEDS ORDERED: LIDOCAINE 1% INJ 10MG/ML (20 ML MDV) ONE (09:27)
[2024-10-12] MEDS ORDERED: MIDAZOLAM 2 MG/2 ML VIAL ONE (09:27)
[2024-10-12] MEDS ORDERED: GLYCOPYRROLATE 0.2 MG/ML 2 ML VIAL ONE (09:27)
[2024-10-12] MEDS ORDERED: PROPOFOL 10 MG/ML 20 ML VIAL IV ONE (09:27)
[2024-10-12] MEDS: IOPAMIDOL-370 100ML BTL MISCELLANE ONE (10:45)
--- NOTE | 2024-10-12 11:12 | P.OP ---
Date of Procedure: 10/12/24 Preoperative Diagnosis: Left renal calculi Postoperative Diagnosis: Same Procedure(s) Performed: Cystoscopy, left ureteroscopy with laser lithotripsy stone basketing and placement of 622 stent Anesthesia: ELISA Surgeon: Ramin Muñoz Estimated Blood Loss (ml): 10 Pathology: other Condition: stable (Stone) Disposition: PACU Indications for Procedure: Patient is 63. She has with calcium urolithiasis. She recently underwent a percutaneous nephrostolithotomy on the right side. She has multiple minor calyceal stones and renal tubular stones. She comes for ureteroscopy and laser lithotripsy on the left side Description of Procedure: Patient brought to the operating suite. Given a general anesthetic. Placed lithotomy position sterile prep and drape. Cystoscopy is completely normal. The left orifice is identified and intubated with an 035 wire passed into the left kidney. Over the wire is passed an 1113 Amharic reentry sheath. The inner sheath and wire removed. I passed the flexible ureteroscope up into the left kidney. I inspected each minor calyx and identified multiple small minor calyceal stones generally 1 to 2 mm maximum. The 200 m laser probe I break the stones up into tiny pieces or dislodge them from the renal papilla so that they will floated out of the ureter. Do an intraoperative nephrogram to make sure that I have entered each calyx and I have. Irrigate thoroughly the inside of the kidney multiple times. Fragments are collected for specimen. We have a stent to dilate the ureter so that when the stent is removed the stone fragments will pass easily. Through the reentry sheath an 035 wire was passed back into the kidney. The reentry sheath is removed and over the wire is passed a 6 x 22 double-J catheter the coils in the renal pelvis and in the bladder. The bladder is drained. I left the stent on a string which is taped to her pubis. Patient is awakened and returned recovery in good condition. Discharge home upon recovery and follow in the office early next week for stent removal.
[2024-10-12 11:17] VITALS: TEMP 97.1
--- NOTE | 2024-10-12 11:47 | FL ---
EXAMINATION TYPE: FL urography retrograde DATE OF EXAM: 10/12/2024 COMPARISON: CT abdomen and pelvis August 10, 2024 HISTORY: Left kidney stone TECHNIQUE: Fluoroscopy. FINDINGS: Fluoroscopic guidance was provided during cystoscopy procedure performed by Dr. Muñoz. A total of 3.24 minutes of fluoroscopic time was utilized during the procedure and 3 spot images was ac quired. Total dose area product (DAP) in uGy*m?, mGy*cm? (or similar): 23.819. Images acquired to cess in the ureter and collecting system from a retrograde approach. IMPRESSION: As Above. [facility], , 10/12/2024 11:45 AM
[2024-10-12 13:19] VITALS: BP 124/81; PULSE 91
== END 2024-10-12 13:45 | disposition home or self-care (01) ==
LOC: OR 07:49
PROVIDERS: ATTEND Urology
DX: N20.0 Calculus of kidney (principal); J45.909 Unspecified asthma, uncomplicated; E07.9 Disorder of thyroid, unspecified; G43.909 Migraine, unspecified, not intractable, without status migrainosus; Z90.49 Acquired absence of other specified parts of digestive tract; Z88.1 Allergy status to other antibiotic agents; Z79.899 Other long term (current) drug therapy
CPT/HCPCS: 52356; 85025; 82365; 74420; 74018; C1769; C2625; J2250; J1100; J2405; J2003; J3010; J2704; Q9967; J2371; J1596